=== PATIENT | female | born 1950 | race Caucasian/White ===

== ENCOUNTER 2017-05-05 16:09 | Inpatient (IN) | payer BC, OTHER ==
[~2017-05-05] VITALS: Ht 165.1 cm; Wt 85.7 kg
[2017-05-05 16:30] VITALS: BP_SYST 160
--- NOTE | 2017-05-05 19:15 | NUR ---
Patient to ER bed 2, to await MD evaluation.
--- NOTE | 2017-05-05 19:19 | NUR ---
Pt c/o fever, headache, dizziness and weakness x3 days that has progressively gotten worse today. Also c/o 10/07 pain to neck. Pt states she had the flu x1 week ago. Respirations even and unlabored. No acute distress noted at this time.
--- NOTE | 2017-05-05 19:45 | NUR ---
Dr Armstrong at bedside to evaluate patient.
[2017-05-05] MEDS ORDERED: NACL 0.9% 1,000 ML IV ONE ×2 (20:00→22:45)
[2017-05-05] MEDS ORDERED: KETOROLAC TROMETHAMINE 30 MG VIAL IVP ONE (20:00)
[2017-05-05] MEDS ORDERED: ONDANSETRON HCL 4 MG/2 ML VIAL IVP ONE (20:00)
[2017-05-05 20:13] LABS: BASOPHILS # (AUTO) 0.1 K/uL (0.0-0.2); BASOPHILS % (AUTO) 1.1 % (0.0-2.0); HEMATOCRIT 40.8 % (36-48); HEMOGLOBIN 13.7 g/dL (12.0-16.0); LYMPHOCYTES % (AUTO) 9.5 % (20.5-51.5); MEAN CORPUSCULAR HEMOGLOBIN 29 pg (27-31); MEAN CORPUSCULAR HGB CONC 34 % (32-36); MEAN CORPUSCULAR VOLUME 86 fL (79.0-98.0); MONOCYTES # (AUTO) 0.5 K/uL (0.0-1.0); MONOCYTES % (AUTO) 5.3 % (1.7-9.3); NEUTROPHILS # (AUTO) 8.4 K/uL (1.8-7.7); NEUTROPHILS % (AUTO) 84.1 % (40.0-70.0); PLATELET COUNT (AUTO) 162 K/uL (130-430); RED BLOOD CELL COUNT(AUTO) 4.72 MIL/uL (4.2-6.2); RED CELL DISTRIBUTION WIDTH 13.4 % (9.0-15.0)
[2017-05-05 20:24] LABS: CALCIUM 9.6 mg/dL (8.4-11.0); CREATININE 1.07 mg/dL (0.55-1.30); POTASSIUM 3.2 mmol/L (3.5-5.1)
[2017-05-05 20:29] LABS: ALBUMIN 3.8 g/dL (3.4-4.8); TOTAL BILIRUBIN 4.5 mg/dL (0.0-1.0)
[2017-05-05] MEDS ORDERED: ACETAMINOPHEN 500 MG TABLET PO ONE (20:30)
[2017-05-05] MEDS ORDERED: POTASSIUM CHLORIDE 20 MEQ/PKT PACKET PO ONE (20:45)
--- NOTE | 2017-05-05 20:45 | NUR ---
Patient resting quietly in no acute distress, awaiting dispo.
[2017-05-05 21:18] LABS: BILIRUBIN,URINE NEGATIVE (NEGATIVE); BLOOD, URINE 2+ (NEGATIVE); CLARITY/URINE HAZY (CLEAR); COLOR,URINE YELLOW (YELLOW); GLUCOSE,URINE 1+ (NEGATIVE); KETONES,URINE 1+ (NEGATIVE); LEUKOCYTE ESTERASE ,URINE 1+ (NEGATIVE); NITRITE, URINE POSITIVE (NEGATIVE); PROTEIN URINE TRACE (NEGATIVE); UROBILINOGEN,URINE 0.2 (0.2-1.0)
[2017-05-05 21:24] LABS: BACTERIA,URINE MANY /HPF (None Seen); MUCUS,URINE None Seen /LPF (None Seen); WBC,URINE 50-80 /HPF (0-3)
--- NOTE | 2017-05-05 21:30 | NUR ---
Dr Armstrong at bedside speaking with patient regarding results and plan of care. Patient states that she would prefer to be admitted. Call placed to admitting MD, awaiting call back. Patient resting quietly in no acute distress.
[2017-05-05] MEDS ORDERED: cefTRIAXone 1 GM in LIDOCAINE 1%, 20 ML MDV 2.1 ML IM ONE (21:45)
[2017-05-05] MEDS ORDERED: ASPI-1063 PO (21:51)
[2017-05-05] MEDS ORDERED: OMEP20CA10 PO (21:51)
[2017-05-05] MEDS ORDERED: INSU300I SQ (21:51)
[2017-05-05] MEDS ORDERED: METF1000 PO (21:51)
[2017-05-05] MEDS ORDERED: INSU10VI4 SUBCUT (21:51)
[2017-05-05] MEDS ORDERED: LIP40 PO (21:51)
[2017-05-05] MEDS ORDERED: DITXL5 PO (21:51)
[2017-05-05] MEDS ORDERED: VALS80TA2 PO (21:51)
[2017-05-05] MEDS ORDERED: cefTRIAXone 1 GM VIAL ONE (21:54)
[2017-05-05] MEDS ORDERED: cefTRIAXone 1 GM in D5W 50 ML IV ONE (22:00)
--- NOTE | 2017-05-05 22:25 | NUR ---
OPENING NOTE REPORT/POC RECEIVED FROM ER NURSE. PT RESTING WITH EYES OPEN NO S/S OF SOB/DISTRESS NOTED. CHEST RISE EVEN AND UNLABORED. NO FACIAL GRIMACING NOTED. ASSISTED PT WITH CHANGING SOILED LINENS INCLUDING GOWN. REPOSITIONED PT. SAFETY MEASURES IN PLACE, BED WHEELS LOCKED, BED IN LOWEST POSITION. BED RAILS UP X 3, CALL LIGHT WITHIN REACH, BED ALARM ON, WILL CONTINUE TO MONITOR. Addendum: 05/06/17 at 0348 by Laura Barrett RN TIME 2330
--- NOTE | 2017-05-05 22:30 | NUR ---
Patient resting quietly in no acute distress, vital signs stable, respirations even and unlabored, skin warm and dry to touch. Awaiting admit bed.
--- NOTE | 2017-05-05 23:00 | NUR ---
Patient will be admitted to care of Dr Harp. Admitted to Tele unit. Will go to room 130-A. Belongings list completed. Summary report printed. Report will be given at bedside.
--- NOTE | 2017-05-05 23:00 | NUR ---
Transfer to [facility], room 130-A via ACLS protocol. Licensed nurse present. IV present no signs or symptoms of infiltration.
--- NOTE | 2017-05-05 23:18 | NUR ---
ADMISSION NOTE Received patient from ER via gurney under the care of Dr. Harp. Patient admitted with diagnosis of UTI/HYPOKALEMIA. Patient is awake, alert, oriented X 4. Patient oriented to hospital room, call light, toileting, pain management and safety-teach back done. Patient informed that her nurse will be Erick HADLEY and that her room number is 130A. Call light within reach. Will continue to monitor patient condition.
[2017-05-05 23:39] VITALS: BP_SYST 109
[2017-05-05] MEDS ORDERED: DEXTROSE 50% JECT 50 ML DISP.SYRIN IVP PRN (23:45)
[2017-05-05] MEDS ORDERED: INSULIN REGULAR, HUMAN 100 UNITS/ML, 10 ML VIAL (novoLIN R) SUBCUT PRN (23:45)
[2017-05-06] MEDS: OSELTAMIVIR PHOSPHATE 75 MG CAPSULE PO SCH ×3 (00:03→21:00)
[2017-05-06] MEDS ORDERED: ZOLPIDEM TARTRATE 5 MG TABLET PO PRN (00:15)
[2017-05-06] MEDS ORDERED: PIPERACILLIN/TAZOBACTAM 3.375 GM/VIAL (ZOSYN) IV ONE (00:36)
--- NOTE | 2017-05-06 04:30 | NUR ---
RN ROUNDS PT RESTING WITH EYES CLOSED NO S/S OF SOB/DISTRESS NOTED. CHEST RISE EVEN AND UNLABORED. NO FACIAL GRIMACING NOTED. VITAL SIGNS WNL. PT'S MEDICATIONS GIVEN ORDERED, PT TOLERATED WELL. SAFETY MEASURES IN PLACE, BED WHEELS LOCKED, BED IN LOWEST POSITION. BED RAILS UP X 3, CALL LIGHT WITHIN REACH, BED ALARM ON, WILL CONTINUE TO MONITOR.
[2017-05-06] MEDS: ACETAMINOPHEN 325 MG TABLET PO PRN ×3 (05:36→23:30)
[2017-05-06] MEDS: PIPERACILLIN/TAZO 3.375/DEX-IS 50 ML IV SCH ×5 (05:42→23:30)
--- NOTE | 2017-05-06 05:55 | NUR ---
RN ROUNDS PT FOUND RESTING IN BED WITH EYES CLOSED, PT SHIVERING UNCONTROLLABLY. TEMPERATURE CHECKED 103.1. TYLENOL GIVEN PRN FOR FEVER. ANTIBIOTIC HUNG ORDERED. PT TOLERATED WELL. NO S/S OF SOB/DISTRESS NOTED. CHEST RISE EVEN AND UNLABORED. NO FACIAL GRIMACING NOTED. SAFETY MEASURES IN PLACE, BED WHEELS LOCKED, BED IN LOWEST POSITION. BED RAILS UP X 3, CALL LIGHT WITHIN REACH, BED ALARM ON, WILL CONTINUE TO MONITOR.
[2017-05-06] MEDS: INSULIN NPH/REGULAR 70-30, 100 UNITS/ML, 10 ML VIAL SUBCUT SCH ×3 (06:08→17:32)
--- NOTE | 2017-05-06 06:15 | NUR ---
RN ROUNDS PT FOUND RESTING COMFORTABLY WITH EYES CLOSED, NO S/S OF SOB/DISTRESS NOTED. CHEST RISE EVEN AND UNLABORED. NO FACIAL GRIMACING NOTED. ACCU CHECK DONE BS 214, INSULIN COVERAGE NEEDED. COVERAGE GIVEN, PT TOLERATED WELL. SAFETY MEASURES IN PLACE, BED WHEELS LOCKED, BED IN LOWEST POSITION. BED RAILS UP X 3, CALL LIGHT WITHIN REACH, BED ALARM ON, WILL CONTINUE TO MONITOR.
[2017-05-06 06:38] LABS: BASOPHILS % (AUTO) 0.1 % (0.0-2.0); EOSINOPHILS % (AUTO) 0.1 % (0.0-4.0); HEMATOCRIT 36.3 % (36-48); HEMOGLOBIN 12.3 g/dL (12.0-16.0); LYMPHOCYTES # (AUTO) 0.8 K/uL (1.0-5.5); LYMPHOCYTES % (AUTO) 10.8 % (20.5-51.5); MEAN CORPUSCULAR HEMOGLOBIN 30 pg (27-31); MEAN CORPUSCULAR HGB CONC 34 % (32-36); MEAN CORPUSCULAR VOLUME 89 fL (79.0-98.0); MONOCYTES # (AUTO) 0.4 K/uL (0.0-1.0); MONOCYTES % (AUTO) 5.7 % (1.7-9.3); NEUTROPHILS # (AUTO) 5.9 K/uL (1.8-7.7); NEUTROPHILS % (AUTO) 83.3 % (40.0-70.0); PLATELET COUNT (AUTO) 130 K/uL (130-430); RED BLOOD CELL COUNT(AUTO) 4.08 MIL/uL (4.2-6.2); RED CELL DISTRIBUTION WIDTH 13.8 % (9.0-15.0); WHITE BLOOD COUNT (AUTO) 7.1 K/uL (4.8-10.8)
--- NOTE | 2017-05-06 06:40 | NUR ---
CLOSING NOTE WILL ENDORSE AND GIVE REPORT TO DAY SHIFT. PT RESTING WITH EYES CLOSED NO S/S OF SOB/DISTRESS NOTED. CHEST RISE EVEN AND UNLABORED. NO FACIAL GRIMACING NOTED. TEMPERATURE RECHECKED 100.0, PT VERBALIZED FEELING BETTER, WILL CONTINUE TO MONITOR. ALL NEEDS MET DURING SHIFT. WILL INFORM DAY SHIFT OF FEVER. SAFETY MEASURES IN PLACE, BED WHEELS LOCKED, BED IN LOWEST POSITION. BED RAILS UP X 3, CALL LIGHT WITHIN REACH, BED ALARM ON, WILL CONTINUE TO MONITOR.
[2017-05-06] MEDS ORDERED: INSULIN Lispro Prot/Lispro MIX 75-25, 100 UNITS/ML, 10 ML VIAL SUBCUT SCH (07:00)
--- NOTE | 2017-05-06 07:15 | NUR ---
Opening Note Patient A/Ox3. No complaints of difficulty breathing. Rating pain 3/10, migraine-like. Noc shift administered acetaminophen for fever. Patient continues to have a fever of 99.3. Cooling measures started. Will continue to monitor temperature. Vital signs taken and patient assisted to bathroom. Extensions of RN and fisherman helper written on white board. Plan of care discussed with patient and patient verbalized understanding. Safety precautions in order and bed alarm set. Patient verbalized understanding of using call light to reach RN before attempting to evacuate bed.
[2017-05-06 07:30] LABS: ALBUMIN 3.3 g/dL (3.4-4.8); CREATININE 0.95 mg/dL (0.55-1.30); FREE T4 (FREE THYROXINE) 0.8 ng/dL (0.6-1.6); POTASSIUM 3.6 mmol/L (3.5-5.1); THYROID STIMULATING HORMONE 1.89 uIu/mL (0.34-4.82); TOTAL BILIRUBIN 4.9 mg/dL (0.0-1.0)
[2017-05-06] MEDS: ASPIRIN 81 MG TABLET(ECOTRIN) PO SCH (08:14)
[2017-05-06] MEDS: ATORVASTATIN 20 MG TABLET PO SCH (08:14)
[2017-05-06] MEDS: metFORMIN HCL 500 MG TABLET PO SCH ×2 (08:15→17:32)
[2017-05-06] MEDS: VALSARTAN 80 MG TABLET (DIOVAN) PO SCH (08:15)
[2017-05-06] MEDS: OMEPRAZOLE 20 MG CAPSULE.DR (PriLOSEC) PO SCH (08:15)
[2017-05-06] MEDS: IBUPROFEN 600 MG TABLET PO PRN ×2 (08:16→16:14)
--- NOTE | 2017-05-06 08:16 | NUR ---
Pain Patient complains of pain 06/07. Motrin 600mg PO given at this time. Will continue to monitor pain.
[2017-05-06] MEDS: LACTOBACILLUS RHAMNOSUS GG 1 CAP CAPSULE PO SCH ×2 (08:17→21:35)
[2017-05-06 08:41] VITALS: BP_SYST 115
--- NOTE | 2017-05-06 11:48 | NUR ---
Blood Glucose 198. 10 units of Novolin 70-30 given. Patient tolerated well.
[2017-05-06 12:40] VITALS: BP_SYST 135
--- NOTE | 2017-05-06 13:40 | NUR ---
Dr Harp rounds Provided patient education on plan of care. Patient and daughter verbalized understanding. One dose of Gentamicin ordered.
[2017-05-06] MEDS ORDERED: GENTAMICIN 120 mg/100 mL NS 100 ML IV ONE (14:30)
--- NOTE | 2017-05-06 15:59 | NUR ---
Blood pressure 96/49 with pulse of 68. Dr Harp notified. Ordered NS 150ml/hr.
[2017-05-06 16:11] VITALS: BP_SYST 96
--- NOTE | 2017-05-06 16:30 | NUR ---
Pain Patient complains of neck pain 06/07. Motrin administered. Will continue to monitor pain levels. Family at bedside. Both daughters asked for an update on plan of care. Discussed plan of care with patient and family members.
[2017-05-06] MEDS: NACL 0.9% 1,000 ML IV SCH ×2 (16:31→21:37)
--- NOTE | 2017-05-06 16:49 | NUR ---
CONSULT DR. VU CALLED SPOKE TO SHAWN DIALED [phone]
--- NOTE | 2017-05-06 16:50 | NUR ---
CONSULT FOR DR. RHOADES CALLED SPOKE TO FELICE DIALED [phone]
--- NOTE | 2017-05-06 18:22 | NUR ---
Closing Note Patient A/Ox3. Complains of mild neck pain. No difficulty breathing. Family at bedside. All needs met. Will endorse to noc shift patient's plan of care.
[2017-05-06 20:43] VITALS: BP_SYST 136
--- NOTE | 2017-05-06 21:15 | NUR ---
PATIENT SITTING UP IN BED asking for sleep aide , skin dry warm general weakness is noted side rails are up X 2 for safety .
--- NOTE | 2017-05-06 22:59 | NUR ---
Patient resting HOB elevated on room air 02 SAT 96 % chest movement symmetrical call posey with patient .
--- NOTE | 2017-05-07 00:19 | NUR ---
OPENING NOTE RECEIVED REPORT FROM KEISHA. PT RESTING WITH EYES OPEN NO S/S OF SOB/DISTRESS NOTED. CHEST RISE EVEN AND UNLABORED. NO FACIAL GRIMACING NOTED. SAFETY MEASURES IN PLACE, BED WHEELS LOCKED, BED IN LOWEST POSITION. BED RAILS UP X 3, CALL LIGHT WITHIN REACH, BED ALARM ON, WILL CONTINUE TO MONITOR
[2017-05-07 00:27] VITALS: BP_SYST 115
--- NOTE | 2017-05-07 00:27 | NUR ---
PAGED DOCTOR PAGED DOCTOR EILEEN
--- NOTE | 2017-05-07 00:35 | NUR ---
SBAR REPORT GIVEN TO LEONIE CASTRO .
--- NOTE | 2017-05-07 00:38 | NUR ---
RN ROUNDS/MD PATIENT AWAKE, VITAL SIGNS STABLE. AMBULATED TO BATHROOM WITH NURSE ASSIST. PLACED BACK IN BED, PATIENT STATES SHE HAS NAUSEA, NO VOMITING. PAGED DR. ARELLANO, NEW MEDICATION ORDER FOR ZOFRAN ORDERED. WILL CARRY OUT.
[2017-05-07] MEDS ORDERED: ONDANSETRON HCL 4 MG/2 ML VIAL IVP PRN (00:45)
--- NOTE | 2017-05-07 02:13 | NUR ---
RN ROUNDS PATIENT ASLEEP, RESPIRATIONS EVEN AND UNLABORED, ON ROOM AIR, IVF INFUSING, SAFETY MEASURES IN PLACE, CALL LIGHT WITHIN REACH, WILL MONITOR.
--- NOTE | 2017-05-07 02:43 | NUR ---
RN ROUNDS PATIENT ASLEEP, RESPIRATIONS EVEN AND UNLABORED, ON ROOM AIR, SAFETY MEASURES IN PLACE, BED ALARM ON, CALL LIGHT IN REACH, WILL CONTINUE TO MONITOR.
--- NOTE | 2017-05-07 04:07 | NUR ---
RN ROUNDS PATIENT CONTINUES TO SLEEP, RESPIRATIONS EVEN AND UNLABORED, VITALS STABLE. BED ALARM ON, CALL LIGHT WITHIN REACH, WILL CONTINUE TO MONITOR.
[2017-05-07] MEDS: NACL 0.9% 1,000 ML IV SCH ×3 (05:25→20:44)
[2017-05-07] MEDS: PIPERACILLIN/TAZO 3.375/DEX-IS 50 ML IV SCH (05:25)
[2017-05-07] MEDS: INSULIN NPH/REGULAR 70-30, 100 UNITS/ML, 10 ML VIAL SUBCUT SCH ×3 (06:05→17:29)
--- NOTE | 2017-05-07 06:30 | NUR ---
RN ROUNDS PT ASSISTED TO THE RESTROOM AND BACK INTO BED. SAFETY MEASURES IN PLACE CALL LIGHT WITHIN REACH, BED WHEEELS LOCKED AND IN LOWEST POSITION, BED ALARM ON, BED RAILS UP X3. WILL CONTINUE TO MONITOR.
[2017-05-07 06:50] LABS: BASOPHILS % (AUTO) 0.4 % (0.0-2.0); EOSINOPHILS % (AUTO) 0.1 % (0.0-4.0); HEMATOCRIT 30.5 % (36-48); HEMOGLOBIN 10.1 g/dL (12.0-16.0); LYMPHOCYTES # (AUTO) 0.5 K/uL (1.0-5.5); LYMPHOCYTES % (AUTO) 10.3 % (20.5-51.5); MEAN CORPUSCULAR HEMOGLOBIN 29 pg (27-31); MEAN CORPUSCULAR HGB CONC 33 % (32-36); MEAN CORPUSCULAR VOLUME 88 fL (79.0-98.0); MONOCYTES # (AUTO) 0.3 K/uL (0.0-1.0); MONOCYTES % (AUTO) 7.1 % (1.7-9.3); NEUTROPHILS # (AUTO) 3.6 K/uL (1.8-7.7); NEUTROPHILS % (AUTO) 82.1 % (40.0-70.0); PLATELET COUNT (AUTO) 100 K/uL (130-430); RED BLOOD CELL COUNT(AUTO) 3.46 MIL/uL (4.2-6.2); RED CELL DISTRIBUTION WIDTH 13.9 % (9.0-15.0); WHITE BLOOD COUNT (AUTO) 4.4 K/uL (4.8-10.8)
--- NOTE | 2017-05-07 07:01 | NUR ---
CLOSING NOTE FOUND PT RESTING WITH EYES CLOSED NO S/S OF SOB/DISTRESS NOTED. CHEST RISE EVEN AND UNLABORED. ALL NEEDS MET DURING SHIFT. SAFETY MEASURES IN PLACE, BED WHEELS LOCKED, BED IN LOWEST POSITION. BED RAILS UP X 3, CALL LIGHT WITHIN REACH, BED ALARM ON, WILL CONTINUE TO MONITOR. WILL ENDORSE POC TO DAY SHIFT NURSE.
[2017-05-07 07:07] LABS: CALCIUM 7.8 mg/dL (8.4-11.0); CREATININE 0.91 mg/dL (0.55-1.30); POTASSIUM 3.3 mmol/L (3.5-5.1)
--- NOTE | 2017-05-07 07:20 | NUR ---
Opening Note Patient A/Ox3, no complaints of pain or difficulty breathing at this time. States she feels extremely "Groggy" from taking Ambien last night. Extensions director of purchasing, MOBILE THERAPIST and dry pan charger written on white board. Plan of care discussed with patient. Patient verbalized understanding. Call light in reach and safety precautions in order
--- NOTE | 2017-05-07 07:45 | NUR ---
Patient left floor for CT of abdomen and pelvis with and without contrast via wheelchair.
[2017-05-07] MEDS ORDERED: IOHEXOL 100 ML IV ONE ×2 (07:59→08:03)
[2017-05-07] MEDS: metFORMIN HCL 500 MG TABLET PO SCH ×2 (08:00→17:29)
[2017-05-07 08:15] VITALS: BP_SYST 119
--- NOTE | 2017-05-07 08:20 | NUR ---
Patient returned back to floor via wheelchair. IV infusion continued. Patient notified she is not able to take her metformin for 48hrs.
[2017-05-07] MEDS: ASPIRIN 81 MG TABLET(ECOTRIN) PO SCH (09:23)
[2017-05-07] MEDS: OSELTAMIVIR PHOSPHATE 75 MG CAPSULE PO SCH ×2 (09:24→20:39)
[2017-05-07] MEDS: ATORVASTATIN 20 MG TABLET PO SCH (09:24)
[2017-05-07] MEDS: LACTOBACILLUS RHAMNOSUS GG 1 CAP CAPSULE PO SCH ×2 (09:24→20:38)
[2017-05-07] MEDS: VALSARTAN 80 MG TABLET (DIOVAN) PO SCH (09:24)
[2017-05-07] MEDS: OMEPRAZOLE 20 MG CAPSULE.DR (PriLOSEC) PO SCH (09:24)
--- NOTE | 2017-05-07 09:33 | NUR ---
Nausea Patient states she is feel nauseous. Zofran IVP administered. Will continue to monitor nausea.
[2017-05-07 11:56] VITALS: BP_SYST 126
--- NOTE | 2017-05-07 12:10 | NUR ---
Rounds Patient sleeping in bed. Daughter at bedside. Asked for an update on plan of care. Patient and family member given an update on plan of care. All questions and concerns addressed.
[2017-05-07] MEDS ORDERED: POTASSIUM CHLORIDE 20 MEQ TAB.PRT.SR PO ONE (13:30)
--- NOTE | 2017-05-07 13:50 | NUR ---
Dr Loyd diaz Gives patient a print out of result from CT of abdomen and pelvis. Results reviewed with patient and daughter.
--- NOTE | 2017-05-07 14:22 | NUR ---
CONSULTATION WAS CALLED RE: PANCYTOPENIA SPOKE WITH JOSE ALBERTO FROM DR. HICKS OFFICE .
--- NOTE | 2017-05-07 15:50 | NUR ---
Rounds Patient assisted to bathroom and back to bed. Patient states "I feel like I've been hit by a bus and all I want to do is sleep."
[2017-05-07 16:35] VITALS: BP_SYST 129
--- NOTE | 2017-05-07 18:31 | NUR ---
Closing Note Patient A/Ox4, ambulatory with steady gait. No complaints of pain or difficulty breathing on room air. Currently laying in bed with family at bedside. IV fluids running to left AC. All needs met during shift. Call light in reach, safety precautions in order. Will endorse to noc shift patient's plan of care.
[2017-05-07 20:00] VITALS: BP_SYST 127
--- NOTE | 2017-05-07 20:00 | NUR ---
Opening Note Pt is a/o x 4, resting in bed, w/ no signs of distress noted at this time. Breathing is even and unlabored on room air. IV site is clean, dry and intact, IVF infusing well. Bed is locked in lowest position w/ 2 side rails up, bed alarm on and call light w/ pt. Pt instructed to call if assistance needed and verbalized understanding. No concerns noted, will continue to monitor pt.
--- NOTE | 2017-05-07 20:15 | NUR ---
Headache Pt c/o headache 06/07. Will administer prn Ibuprofen, per pt's preference/request. Will reassess pt and continue to monitor.
[2017-05-07] MEDS: POTASSIUM CHLORIDE 20 MEQ TAB.PRT.SR PO SCH (20:38)
[2017-05-07] MEDS: IBUPROFEN 600 MG TABLET PO PRN (20:39)
--- NOTE | 2017-05-07 22:05 | NUR ---
Rounds Pt sleeping in bed w/ no signs of distress noted at this time. Safety measures in place, call light w/ pt and will continue to monitor pt.
[2017-05-08 00:25] VITALS: BP_SYST 97
--- NOTE | 2017-05-08 02:10 | NUR ---
ROUNDS Pt sleeping w/ no signs of distress noted, safety measures in place and will continue to monitor pt.
--- NOTE | 2017-05-08 04:20 | NUR ---
Rounds Pt sleeping in bed, no signs of distress noted.
--- NOTE | 2017-05-08 06:37 | NUR ---
Closing Note Pt sleeping in bed, breathing is even and unlabored on room air. Accucheck completed w/ BG result of 133, will administer scheduled 12 units Insulin closer to breakfast, as pt has not been eating well d/t decreased appetite. Pt states that she feels her appetite has improved this morning and she is looking forward to breakfast Pt's needs met throughout shift, safety measures in place and call light w/ pt. No concerns, will continue to monitor and endorse to day shift RN.
[2017-05-08 06:52] LABS: BASOPHILS % (AUTO) 0.4 % (0.0-2.0); EOSINOPHILS % (AUTO) 0.8 % (0.0-4.0); HEMATOCRIT 28.8 % (36-48); HEMOGLOBIN 9.6 g/dL (12.0-16.0); LYMPHOCYTES % (AUTO) 26.7 % (20.5-51.5); MEAN CORPUSCULAR HEMOGLOBIN 30 pg (27-31); MEAN CORPUSCULAR HGB CONC 33 % (32-36); MEAN CORPUSCULAR VOLUME 89 fL (79.0-98.0); MONOCYTES # (AUTO) 0.4 K/uL (0.0-1.0); MONOCYTES % (AUTO) 11.4 % (1.7-9.3); NEUTROPHILS # (AUTO) 2.4 K/uL (1.8-7.7); PLATELET COUNT (AUTO) 100 K/uL (130-430); RED BLOOD CELL COUNT(AUTO) 3.25 MIL/uL (4.2-6.2); RED CELL DISTRIBUTION WIDTH 13.6 % (9.0-15.0); WHITE BLOOD COUNT (AUTO) 3.8 K/uL (4.8-10.8)
[2017-05-08 07:21] LABS: CALCIUM 8.6 mg/dL (8.4-11.0); CREATININE 0.7 mg/dL (0.55-1.30); POTASSIUM 3.8 mmol/L (3.5-5.1)
[2017-05-08] MEDS: INSULIN NPH/REGULAR 70-30, 100 UNITS/ML, 10 ML VIAL SUBCUT SCH ×3 (07:46→17:04)
[2017-05-08] MEDS: metFORMIN HCL 500 MG TABLET PO SCH ×2 (07:47→18:00)
[2017-05-08 08:00] VITALS: BP_SYST 114
--- NOTE | 2017-05-08 08:00 | NUR ---
RN OPENING NOTE patient resting in bed, alert oriented x 4 , denies pain or discomfort, patient vital signs are stable. patient was assessed, will pass her med as prescribed. bed at low position. we need to start a new saline lock for the patient will call Ai the Resource nurse to help while I'm assessing other patient.bed alarm are on. walker by the bed side, will continue to monitor.
[2017-05-08 08:48] LABS: NEUTROPHILS % (AUTO) 60.7 % (40.0-70.0)
[2017-05-08] MEDS: OSELTAMIVIR PHOSPHATE 75 MG CAPSULE PO SCH ×2 (09:32→21:00)
[2017-05-08] MEDS: OMEPRAZOLE 20 MG CAPSULE.DR (PriLOSEC) PO SCH (09:32)
[2017-05-08] MEDS: VALSARTAN 80 MG TABLET (DIOVAN) PO SCH (09:32)
[2017-05-08] MEDS: ATORVASTATIN 20 MG TABLET PO SCH (09:33)
[2017-05-08] MEDS: ASPIRIN 81 MG TABLET(ECOTRIN) PO SCH (09:33)
[2017-05-08] MEDS: POTASSIUM CHLORIDE 20 MEQ TAB.PRT.SR PO SCH ×2 (09:33→21:00)
[2017-05-08] MEDS: LACTOBACILLUS RHAMNOSUS GG 1 CAP CAPSULE PO SCH ×2 (09:33→21:01)
--- NOTE | 2017-05-08 09:50 | NUR ---
patient was helped to the bath room, patient denies pain or discomfort. will follow up
--- NOTE | 2017-05-08 11:30 | NUR ---
patient resting in bed, Daughter by the bedside, patient denies pain or discomfort. patient blood sugar was measured to be 179 mg/dl patient, patient will be getting his scheduled 12 units of 70/30 insulin. patient was assisted to the bathroom for voiding. and returned back to bed. still running her IVF. will continue to monitor.
[2017-05-08 12:00] VITALS: BP_SYST 116
--- NOTE | 2017-05-08 12:53 | NUR ---
ONCO/JUVENILE CORRECTIONS OFFICER CONSULT WAS CALLED TO DR HICKS, RE: PANCYTOPENIA. SPOKE TO POL[place]
[2017-05-08] MEDS: IBUPROFEN 600 MG TABLET PO PRN (13:08)
--- NOTE | 2017-05-08 13:20 | NUR ---
spoke with Dr. Warren the Follow Up Rep. as Dr. العراقي (the I.D )suggested patient can be discharged home today and get the IV antibiotics in an infusion center. Dr. Warren ordered labs for tomorrow, that would find out the reason of the patient sudden drop in Hemoglobin as will as explain the hematologic picture of the patient's CBC. when I told him the patient may leave today, He said the patient better stay till we get the labs done as well as the stool for the occult blood sample sent . this talks were endorsed to the director of casework and the patient, so awaiting for a stool sample from the patient. director of casework was told of the situation. so mostly patient will be D/C tomorrow. director of casework to follow up with the case.
--- NOTE | 2017-05-08 13:36 | NUR ---
DC PLANNING Spoke w Dr Wood in [facility], recommends IV abx x7days, per ID ok to dc today. States pt can go to Infusion center in [place] for IV abx, no PICC needed. Per pt's nurse Dr Warren ordered new w/u today & recommends pt stay 1 more night for w/u to be completed. Spoke w pt & dtr Elissa @ bedside, discussed options for IV abx SNF vs Infusion Center in [place] vs Home Health. Per pt prefers to dc home & f/u @ Infusion center for IV abx. States dtr's/dtr will be able to assist her @ home & they will also be able to take her to Infusion center daily. Updated rigo Brian merchandise planner. Addendum: 05/08/17 at 1447 by Snehal Lazar DP Faxed [facility] to [facility] [phone] located [address] [facility] [address]. Will follow up with scheduling confirmation.
--- NOTE | 2017-05-08 15:00 | NUR ---
DR. ARELLANO THE PRIMARY, ARE NOT AGREEING WITH D/C PATIENT TODAY, PATIENT WAS INFORMED, THAT SHE WILL STAY OVER NIGHT PENDING HER DISCHARGE ORDERS. PATIENT DENIES PAIN OR DISCOMFORT WILL CONTINUE TO FOLLOW UP.
--- NOTE | 2017-05-08 15:20 | NUR ---
Dietitian Recommendations 1. Continue CCHO diet, as tolerated. 2. Consume >75% of meals, as tolerated. 3. If appetite/po intake declines, recommend Boost Glucose Control BID (provides 250kacl, 14g pro per serving). 4. Monitor appetite/po intake, weight, labs, GI status, skin integrity. Please see nutrition assessment for further information. ANURAG MICHELLE
[2017-05-08 15:35] LABS: ALBUMIN 2.7 g/dL (3.4-4.8); BILIRUBIN,DIRECT 0.6 mg/dL (0.0-0.3); TOTAL BILIRUBIN 1.8 mg/dL (0.0-1.0)
[2017-05-08 16:00] VITALS: BP_SYST 112
--- NOTE | 2017-05-08 17:00 | NUR ---
PATIENT BLOOD SUGAR WAS MEASURED TO BE 159MG/DL. PATIENT GOT HER 70/30 INSULIN 12 UNITS SQ. PATIENT DENIES PAIN OR DISCOMFORT. PATIENT WAS TOLD THAT SHE CAN SHOWER PER DR. ARELLANO'S ORDER. PATIENT TELE WAS DISCONTINUED AND PATIENT IS MED SURG NOW. WILL CONTINUE TO MONITOR.
--- NOTE | 2017-05-08 18:00 | NUR ---
RN CLOSING NOTE PATIENT WAS TOLD ABOUT THE DECISION TO KEEP HER OVER NIGHT, DAUGHTER ALREADY LEFT HOME. THE PATIENT DENIES PAIN OR DISCOMFORT. WANTS TO TAKE A SHOWER, WE ARE LOOKING FOR A FEMALE NURSE TO ACCOMPANY HER AND ASSIST HER IN THE SHOWER. WILL ENDORSE TO NEXT SHIFT,
--- NOTE | 2017-05-08 19:00 | NUR ---
RN opening note: Report received from dayshift RN. Pt awake, alert and pleasant. Denies pain/discomfort. SL in Right hand. Drsg clean, dry and intact. Flushed with 10 ml NS as per protocol without resistance. Will continue to monitor.
[2017-05-08 20:57] VITALS: BP_SYST 128
--- NOTE | 2017-05-08 21:00 | NUR ---
RN rounds/med administration: Pt medicated with PM meds. VSS. Assessed. Pt requesting to shower, however, shower is currently being used by another pt. Fingerstick done. Results 153. No coverage needed at this time.
--- NOTE | 2017-05-08 23:00 | NUR ---
Pt rounds: Pt ambulated to shower and washed independently. SL covered with plastic glove to protect it from getting wet. Pt assisted back to bed. Pt states she feels much better
[2017-05-09] VITALS: BP_SYST 109
--- NOTE | 2017-05-09 01:00 | NUR ---
RN rounds: Pt appears free of pain/discomfort. Sleeping soundly. Will continue to assess/assist as needed.
--- NOTE | 2017-05-09 03:00 | NUR ---
RN rounds: Pt sound asleep without distress. Resp unlabored. Skin Warm and dry. Will continue to monitor.
--- NOTE | 2017-05-09 04:00 | NUR ---
RN Notes: Pt up to the bathroom. c/o abd pain and bloaing. ,States her stomach is still bloated, but she's not able to pass gas. BS positive in all 4 quads. Will continue to assess.
--- NOTE | 2017-05-09 05:14 | NUR ---
RN rounds; Pt awake. States she is still urinating a lot. Amb with steady gait. Walker at bedside. Pt states, " I've been going to the restroom without even using my walker. I only need it when I'm going on longer walks." Advised pt to keep walker close by just in case.
--- NOTE | 2017-05-09 06:00 | NUR ---
RN Closing note: Lab here to draw pt's blood. Pt without complaints although she did not sleep very well. Constantly up and down to the restroom to void and c/o abd discomfort d/t eating ice cream. Pt thinks she "may be lactose intolerant but it was good". Will endorse pt to oncoming RN for continuity of care.
[2017-05-09] MEDS: INSULIN NPH/REGULAR 70-30, 100 UNITS/ML, 10 ML VIAL SUBCUT SCH ×3 (07:18→17:29)
[2017-05-09 07:32] LABS: BASOPHILS % (AUTO) 0.5 % (0.0-2.0); EOSINOPHILS # (AUTO) 0.1 K/uL (0.0-0.4); EOSINOPHILS % (AUTO) 1.7 % (0.0-4.0); HEMATOCRIT 28.3 % (36-48); HEMOGLOBIN 9.4 g/dL (12.0-16.0); LYMPHOCYTES % (AUTO) 23.3 % (20.5-51.5); MEAN CORPUSCULAR HEMOGLOBIN 29 pg (27-31); MEAN CORPUSCULAR HGB CONC 33 % (32-36); MEAN CORPUSCULAR VOLUME 88 fL (79.0-98.0); MONOCYTES # (AUTO) 0.3 K/uL (0.0-1.0); MONOCYTES % (AUTO) 6.4 % (1.7-9.3); NEUTROPHILS # (AUTO) 2.9 K/uL (1.8-7.7); NEUTROPHILS % (AUTO) 68.1 % (40.0-70.0); PLATELET COUNT (AUTO) 117 K/uL (130-430); RED BLOOD CELL COUNT(AUTO) 3.21 MIL/uL (4.2-6.2); RED CELL DISTRIBUTION WIDTH 13.8 % (9.0-15.0); WHITE BLOOD COUNT (AUTO) 4.3 K/uL (4.8-10.8)
[2017-05-09 07:50] LABS: ALBUMIN 2.7 g/dL (3.4-4.8); CALCIUM 9.1 mg/dL (8.4-11.0); CREATININE 0.74 mg/dL (0.55-1.30); POTASSIUM 4.1 mmol/L (3.5-5.1); TOTAL BILIRUBIN 1.5 mg/dL (0.0-1.0)
[2017-05-09 08:00] VITALS: BP_SYST 130
[2017-05-09] MEDS: metFORMIN HCL 500 MG TABLET PO SCH ×2 (08:00→17:26)
--- NOTE | 2017-05-09 08:00 | NUR ---
initial notes rec patient awake alert with ivl on the r hand intact. no infiltration noted. resp easy and unlabored. no acute distress noted. call light within reached and knows when to call for assists. bed in low position and side rails up and locked. will continue to monitor patient.
[2017-05-09 08:43] LABS: RETICULOCYTE COUNT 3.5 % (0.5-1.5)
[2017-05-09] MEDS: ATORVASTATIN 20 MG TABLET PO SCH (09:00)
[2017-05-09] MEDS: OMEPRAZOLE 20 MG CAPSULE.DR (PriLOSEC) PO SCH (09:06)
[2017-05-09] MEDS: POTASSIUM CHLORIDE 20 MEQ TAB.PRT.SR PO SCH ×2 (09:07→21:37)
[2017-05-09] MEDS: LACTOBACILLUS RHAMNOSUS GG 1 CAP CAPSULE PO SCH ×2 (09:07→21:37)
[2017-05-09] MEDS: ASPIRIN 81 MG TABLET(ECOTRIN) PO SCH (09:07)
[2017-05-09] MEDS: VALSARTAN 80 MG TABLET (DIOVAN) PO SCH (09:08)
[2017-05-09] MEDS: OSELTAMIVIR PHOSPHATE 75 MG CAPSULE PO SCH ×2 (09:08→21:36)
[2017-05-09 09:13] LABS: TOTAL IRON BIND. CAPACITY 193 ug/dL (250-450)
--- NOTE | 2017-05-09 10:00 | NUR ---
rounds ambulates to the br with min assists and and notd with blood streaked in her stool. dr urban was made aware and with orders.
--- NOTE | 2017-05-09 10:20 | NUR ---
CONSULTATION CALLED REASON FOR CONSULTATION:GI BLEEDING WAS CONSULT CALLED?Y PERSON WHO WAS NOTIFIED:[place] CONSULTING PHYSICIAN:NADIR RMAON AUTO MACHINIST SPECIALTY:GI AUTO MACHINIST PHONE NUMBER:[phone] ORDERING PHYSICIAN:SAÚL MUNSON
[2017-05-09] MEDS ORDERED: LOPERAMIDE HCL 2 MG CAPSULE PO ONE (10:45)
[2017-05-09] MEDS ORDERED: LOPERAMIDE HCL 2 MG CAPSULE PO PRN (10:45)
--- NOTE | 2017-05-09 11:19 | NUR ---
DISCHARGE PLANNING Called [facility] [phone] left voice message for Annette in intake dept requesting return call back. Addendum: 05/09/17 at 1132 by Snehal Lazar DP Confirmed with Annette at [facility] patient scheduled tomorrow for IV medication, Annette informed patient.
[2017-05-09] MEDS ORDERED: metroNIDAZOLE 500 MG TABLET PO ONE (11:30)
--- NOTE | 2017-05-09 12:00 | NUR ---
rounds no hypo hyperglycemic reaction noted. due meds given as ordered.
[2017-05-09 13:07] VITALS: BP_SYST 132
--- NOTE | 2017-05-09 14:00 | NUR ---
rounds pt sleeps at intervals and side rails up and locked. call light within reached.
[2017-05-09] MEDS: IBUPROFEN 600 MG TABLET PO PRN (15:11)
[2017-05-09 15:23] VITALS: BP_SYST 131
--- NOTE | 2017-05-09 16:00 | NUR ---
rounds ambulates to the br with min assists and stated that her diarrhea stops but the immodium. explained to patient that at 1700 will start the gi prep meds and understood. also explained re npo after midnight.
[2017-05-09] MEDS ORDERED: BISACODYL 5 MG TABLET.DR (DULCOLAX) PO ONE (17:00)
[2017-05-09] MEDS ORDERED: COMMUNICATION ORDER XX ONE (17:45)
[2017-05-09] MEDS ORDERED: GOLYTELY / COLYTE SOLUTION 4 LITERS PO ONE (18:00)
--- NOTE | 2017-05-09 18:30 | NUR ---
closing notes pt started the golytely prep and stated had been to the br once and with small amount of blood streak stool. no hypo hyperglycemic reaction noted. bed in low position and side rails up and locked. call light within reached and bedside commode provided at bedside.
--- NOTE | 2017-05-09 19:50 | NUR ---
ROUNDS PATIENT IN BED, WATCHING TV, VITALS STABLE, DENIES ANY PAIN AND DISCOMFORT AT THIS TIME. ASSESSMENT DONE AND DOCUMENTED. SEE FLOWSHEET. PATIENT TOLERATING GOLYTELY AT THIS TIME ORDERED. NEEDS ATTENDED TO. SAFETY AND FALL PRECAUTION MEASURES IN PLACED. BEDSIDE COMMODE PROVIDED. CALL LIGHT PLACED WITHIN REACH. WILL CONTINUE TO MONITOR.
[2017-05-09 20:00] VITALS: BP_SYST 129
--- NOTE | 2017-05-09 21:15 | NUR ---
ACCU CHECK ACCU CHECK DONE , BLOOD SUGAR 115 WITH NO INSULIN COVERAGE. DUE MEDICATIONS ALSO GIVEN ORDERED, TOLERATED WELL. WILL CONTINUE TO MONITOR.
[2017-05-09] MEDS: metroNIDAZOLE 500 mg/NS 100 ML IV SCH (21:37)
[2017-05-09] MEDS ORDERED: metroNIDAZOLE 500 MG TABLET PO SCH (22:00)
--- NOTE | 2017-05-10 00:10 | NUR ---
PATIENT RESTING: Patient resting quietly. No acute distress noted. Vital signs within normal range.
[2017-05-10 00:18] VITALS: BP_SYST 104
--- NOTE | 2017-05-10 02:15 | NUR ---
ROUNDS PATIENT ASLEEP, VITALS STABLE, WILL CONTINUE TO MONITOR.
--- NOTE | 2017-05-10 04:10 | NUR ---
PATIENT RESTING: Patient resting quietly. No acute distress noted. Vital signs within normal range.
[2017-05-10] MEDS: metroNIDAZOLE 500 mg/NS 100 ML IV SCH ×3 (05:10→22:43)
[2017-05-10] MEDS: INSULIN NPH/REGULAR 70-30, 100 UNITS/ML, 10 ML VIAL SUBCUT SCH ×3 (06:34→17:08)
[2017-05-10 06:43] LABS: BASOPHILS % (AUTO) 0.3 % (0.0-2.0); EOSINOPHILS # (AUTO) 0.1 K/uL (0.0-0.4); HEMATOCRIT 27.5 % (36-48); HEMOGLOBIN 9.1 g/dL (12.0-16.0); LYMPHOCYTES # (AUTO) 1.2 K/uL (1.0-5.5); LYMPHOCYTES % (AUTO) 28.7 % (20.5-51.5); MEAN CORPUSCULAR HEMOGLOBIN 29 pg (27-31); MEAN CORPUSCULAR HGB CONC 33 % (32-36); MEAN CORPUSCULAR VOLUME 88 fL (79.0-98.0); MONOCYTES # (AUTO) 0.2 K/uL (0.0-1.0); MONOCYTES % (AUTO) 5.9 % (1.7-9.3); NEUTROPHILS # (AUTO) 2.5 K/uL (1.8-7.7); NEUTROPHILS % (AUTO) 63.1 % (40.0-70.0); PLATELET COUNT (AUTO) 128 K/uL (130-430); RED BLOOD CELL COUNT(AUTO) 3.12 MIL/uL (4.2-6.2); RED CELL DISTRIBUTION WIDTH 14.1 % (9.0-15.0)
[2017-05-10 06:47] LABS: CALCIUM 8.9 mg/dL (8.4-11.0); CREATININE 0.73 mg/dL (0.55-1.30); POTASSIUM 3.6 mmol/L (3.5-5.1)
--- NOTE | 2017-05-10 06:47 | NUR ---
CLOSING NOTES PATIENT REMAINED STABLE, DENIES ANY PAIN AND DISCOMFORT AT THIS TIME. TAP WATER ENEMA DONE ORDERED WITH CLEAR RETURN FLOW, TOLERATING PROCEDURE WELL FOR HER SCHEDULED EGD AND COLONOSCOPY TODAY. ALL NEEDS ATTENDED TO. CALL LIGHT PLACED WITHIN REACH.
--- NOTE | 2017-05-10 07:35 | NUR ---
AM ROUNDS: PATIENT AWAKE LYING ON THE BED. NPO [place] AT THE TABLE AND VERBALIZED UNDERSTANDING,FOR EGD/COLONOSCOPY TODAY BY DR VOSS .CONSENT SIGNED BY THE PATIENT AND ATTACHED TO THE CHART. CALL LIGHT WITH IN REACH. BED LOCKED AT LOWEST POSITION.
[2017-05-10 07:45] VITALS: BP_SYST 111
[2017-05-10] MEDS: metFORMIN HCL 500 MG TABLET PO SCH ×2 (08:00→17:09)
--- NOTE | 2017-05-10 09:17 | NUR ---
ROCEPHIN: DUE IV ANTIBIOTICS GIVEN ORDERED.
[2017-05-10] MEDS ORDERED: SIMETHICONE 40 MG/0.6 ML ML ONE (09:21)
--- NOTE | 2017-05-10 09:45 | NUR ---
IV NOTES: PT C/O PAIN AT THE IV SITE.IV RE SITED AT LEFT HAND USING G#22,IV ANTIBIOTICS GIVEN.
--- NOTE | 2017-05-10 11:27 | NUR ---
BLOOD SUGAR: BLOOD [id number]=585LX/DL,NO COVERAGE GIVEN, PATIENT NOTHING BY MOUTH FOR EGD/COLONOSCOPY TODAY. NOTIFIED.
[2017-05-10 11:52] VITALS: BP_SYST 129
--- NOTE | 2017-05-10 11:54 | NUR ---
GI LAB: [facility] GI NURSE TOOK PATIENT VIA WHEELCHAIR TO GI LAB FOR EGD/COLONOSCOPY.
[2017-05-10] MEDS: MIDAZOLAM HCL 5 MG/5 ML VIAL ONE ×2 (12:13→12:15)
[2017-05-10] MEDS: MEPERIDINE HCL/PF 100 MG/ML AMP ONE ×2 (12:13→12:15)
--- NOTE | 2017-05-10 13:37 | NUR ---
RN ROUNDING: BACK FROM GI LAB ,STABLE. PATIENT HUNGRY,REQUESTED FOR FOOD.CALL [facility] AND [facility]EGD RESULT=GASTRITIS,COLONOSCOPY RESULTS=DIVERTICULOSIS,HEMORRHOIDS PER JOSE ALBERTO RN FROM GI LAB.
[2017-05-10] MEDS: OMEPRAZOLE 20 MG CAPSULE.DR (PriLOSEC) PO SCH (15:01)
[2017-05-10] MEDS: ASPIRIN 81 MG TABLET(ECOTRIN) PO SCH (15:02)
[2017-05-10] MEDS: OSELTAMIVIR PHOSPHATE 75 MG CAPSULE PO SCH (15:02)
[2017-05-10] MEDS: LACTOBACILLUS RHAMNOSUS GG 1 CAP CAPSULE PO SCH ×2 (15:02→20:45)
[2017-05-10] MEDS: POTASSIUM CHLORIDE 20 MEQ TAB.PRT.SR PO SCH ×2 (15:02→20:45)
[2017-05-10] MEDS: VALSARTAN 80 MG TABLET (DIOVAN) PO SCH (15:07)
[2017-05-10 15:10] LABS: FOLATE (FOLIC ACID) 16.9 ng/mL (>3.0)
--- NOTE | 2017-05-10 15:10 | NUR ---
RN ROUNDS: WITH VISITOR'S AT BEDSIDE. NO NEEDS THIS TIME.
[2017-05-10 16:48] VITALS: BP_SYST 123
--- NOTE | 2017-05-10 17:15 | NUR ---
BLOOD SUGAR: BLOOD PTEQY=349HQ/DL,NOVALIN 70/30 12 UNITS SUBQ GIVEN ORDERED. NO INSULIN GIVEN PER SLIDING SCALE.
--- NOTE | 2017-05-10 18:43 | NUR ---
CLOSING NOTES: JUST FINISHED EATING HER DINNER. STABLE. CALL LIGHT WITH IN REACH. BED LOCKED AT LOWEST POSITION.
--- NOTE | 2017-05-10 19:40 | NUR ---
ROUNDS PATIENT RESTING COMFORTABLY IN BED, VITALS STABLE, DENIES ANY PAIN AND DISCOMFORT AT THIS TIME. ASSESSMENT DONE AND DOCUMENTED. SEE FLOWSHEET. NEEDS ATTENDED TO. SAFETY AND FALL PRECAUTION MEASURES IN PLACED. BED IN LOW AND LOCKED POSITION. CALL LIGHT PLACED WITHIN REACH.
[2017-05-10 20:00] VITALS: BP_SYST 118
[2017-05-10] MEDS: ACETAMINOPHEN 325 MG TABLET PO PRN (20:45)
[2017-05-10] MEDS ORDERED: ATORVASTATIN 20 MG TABLET PO SCH (21:00)
--- NOTE | 2017-05-10 21:15 | NUR ---
ACCU CHECK ACCU CHECK DONE, BLOOD SUGAR 163 WITH NO INSULIN COVERAGE PER SLIDING SCALE. WILL CONTINUE TO MONITOR.
[2017-05-10 23:50] VITALS: BP_SYST 107
--- NOTE | 2017-05-11 00:15 | NUR ---
PATIENT RESTING: Patient resting quietly. No acute distress noted. Vital signs within normal range.
--- NOTE | 2017-05-11 02:05 | NUR ---
ROUNDS PATIENT ASLEEP, NO SOB NOTED, VITALS STABLE. WILL CONTINUE TO MONITOR.
--- NOTE | 2017-05-11 04:10 | NUR ---
PATIENT RESTING: Patient resting quietly. No acute distress noted. Vital signs within normal range.
[2017-05-11] MEDS: metroNIDAZOLE 500 mg/NS 100 ML IV SCH (05:49)
--- NOTE | 2017-05-11 06:19 | NUR ---
CLOSING NOTES PATIENT AWAKE, WATCHING TV, DENIES ANY PAIN AND DISCOMFORT AT THIS TIME. ACCU CHECK DONE WITH BLOOD SUGAR OF 127, NO INSULIN COVERAGE PER SLIDING SCALE. ALL NEEDS ATTENDED TO. CALL LIGHT PLACED WITHIN REACH.
[2017-05-11 06:25] LABS: BASOPHILS % (AUTO) 0.5 % (0.0-2.0); EOSINOPHILS # (AUTO) 0.1 K/uL (0.0-0.4); HEMATOCRIT 29.3 % (36-48); HEMOGLOBIN 9.7 g/dL (12.0-16.0); LYMPHOCYTES # (AUTO) 1.2 K/uL (1.0-5.5); LYMPHOCYTES % (AUTO) 24.5 % (20.5-51.5); MEAN CORPUSCULAR HEMOGLOBIN 30 pg (27-31); MEAN CORPUSCULAR HGB CONC 33 % (32-36); MEAN CORPUSCULAR VOLUME 89 fL (79.0-98.0); MONOCYTES # (AUTO) 0.2 K/uL (0.0-1.0); NEUTROPHILS # (AUTO) 3.2 K/uL (1.8-7.7); PLATELET COUNT (AUTO) 161 K/uL (130-430); RED BLOOD CELL COUNT(AUTO) 3.29 MIL/uL (4.2-6.2); RED CELL DISTRIBUTION WIDTH 13.7 % (9.0-15.0); WHITE BLOOD COUNT (AUTO) 4.8 K/uL (4.8-10.8)
[2017-05-11] MEDS: INSULIN NPH/REGULAR 70-30, 100 UNITS/ML, 10 ML VIAL SUBCUT SCH ×2 (06:31→11:11)
[2017-05-11 06:54] LABS: ALBUMIN 2.8 g/dL (3.4-4.8); CALCIUM 9.1 mg/dL (8.4-11.0); CREATININE 0.71 mg/dL (0.55-1.30); POTASSIUM 3.9 mmol/L (3.5-5.1); TOTAL BILIRUBIN 1.1 mg/dL (0.0-1.0)
--- NOTE | 2017-05-11 07:40 | NUR ---
AM ROUNDS: PATIENT AWAKE DURING ROUNDS. IV INFILTRATED,DC. VITAL SIGNS TAKEN,AFEBRILE AND STABLE. CALL LIGHT WITH IN REACH.BED LOCKED AT LOWEST POSITION.
--- NOTE | 2017-05-11 07:50 | NUR ---
IV INFILTRATED: IV REMOVED AT LEFT HAND,DRY GAUZE APPLIED,NO BLEEDING NOTED.IV RE SITED AT RIGHT WRIST USING G#20,CONTINUE IV ANTIBIOTIC ORDERED.
[2017-05-11 08:16] VITALS: BP_SYST 129
[2017-05-11] MEDS: IBUPROFEN 600 MG TABLET PO PRN (08:44)
[2017-05-11] MEDS: LACTOBACILLUS RHAMNOSUS GG 1 CAP CAPSULE PO SCH (08:44)
[2017-05-11] MEDS: OMEPRAZOLE 20 MG CAPSULE.DR (PriLOSEC) PO SCH (08:45)
[2017-05-11] MEDS: VALSARTAN 80 MG TABLET (DIOVAN) PO SCH (08:45)
[2017-05-11] MEDS: POTASSIUM CHLORIDE 20 MEQ TAB.PRT.SR PO SCH (08:45)
[2017-05-11] MEDS: ASPIRIN 81 MG TABLET(ECOTRIN) PO SCH (08:45)
[2017-05-11] MEDS: metFORMIN HCL 500 MG TABLET PO SCH (08:45)
--- NOTE | 2017-05-11 11:15 | NUR ---
BLOOD SUGAR: BLOOD LRWQM=137BX/DL,NOVOLIN 70/30 12 UNITS SUBQ GIVEN ORDERED.
--- NOTE | 2017-05-11 11:36 | NUR ---
DC ORDERS: PATIENT SEEN BY DR ARELLANO WITH ORDERS DC HOME AND F/U WITH PCP AND [facility] IN 1 WEEK.
[2017-05-11 12:51] VITALS: BP_SYST 132
[2017-05-11 14:23] VITALS: BP_SYST 129
[2017-05-11] MEDS ORDERED: PRO40 PO (14:36)
--- NOTE | 2017-05-11 15:00 | NUR ---
DC NOTES: TRANSITIONAL CARE DOCUMENTS AND PRESCRIPTIONS GIVEN TO PATIENT. PATIENT VERBALIZED UNDERSTANDING OF DC INSTRUCTIONS. PERSONAL BELONGINGS SEND HOME WITH THE PATIENT.IV REMOVED,DRY GAUZE APPLIED,NO BLEEDING NOTED. ACCOMPANIED HOME BY HER DAUGHTER IN STABLE CONDITION.
[2017-05-11 16:50] VITALS: BP_SYST 129
--- NOTE | 2017-05-13 14:07 | NUR ---
Discharge Follow Up Phone Call [facility] phoned patient, . Patient stated she was doing okay. She filled her prescriptions and is taking her medication as directed. She is not getting infusion treatments as she was told she did not need it. She has a follow up appointment with her PCP on 05/15/17. Her pill box went missing while at the hospital. She has been in contact with Security and Pharmacy but it has not been found. Patient has no other questions or concerns.
== END 2017-05-11 15:00 | disposition home or self-care (01) | DRG 865 ==
LOC: EDSEX 16:09 → SED 16:09 → STU 22:18 → MERGE 22:18 → STU 22:55 → SMU 05-08 15:28
PROVIDERS: ADMIT Internal Medicine; ATTEND Internal Medicine
PROC: 0DJD8ZZ Inspection of Lower Intestinal Tract, Via Natural or Artificial Opening Endoscopic (ICD-10-PCS; 2017-05-10)
PROC: 0DB98ZX Excision of Duodenum, Via Natural or Artificial Opening Endoscopic, Diagnostic (ICD-10-PCS; principal; 2017-05-10 12:00)
PROC: 0DB68ZX Excision of Stomach, Via Natural or Artificial Opening Endoscopic, Diagnostic (ICD-10-PCS; 2017-05-10 12:00)
DX: B34.9 Viral infection, unspecified (principal); K29.71 Gastritis, unspecified, with bleeding; D61.818 Other pancytopenia; E44.0 Moderate protein-calorie malnutrition; K57.91 Diverticulosis of intestine, part unspecified, without perforation or abscess with bleeding; N12 Tubulo-interstitial nephritis, not specified as acute or chronic; D58.9 Hereditary hemolytic anemia, unspecified; R65.10 Systemic inflammatory response syndrome (SIRS) of non-infectious origin without acute organ dysfunction; R17 Unspecified jaundice; E11.65 Type 2 diabetes mellitus with hyperglycemia; N28.1 Cyst of kidney, acquired; E11.9 Type 2 diabetes mellitus without complications; E78.5 Hyperlipidemia, unspecified; K64.8 Other hemorrhoids; Z96.659 Presence of unspecified artificial knee joint; E66.9 Obesity, unspecified; B96.20 Unspecified Escherichia coli [E. coli] as the cause of diseases classified elsewhere; J06.9 Acute upper respiratory infection, unspecified; E87.6 Hypokalemia; D17.79 Benign lipomatous neoplasm of other sites; I10 Essential (primary) hypertension; Z79.82 Long term (current) use of aspirin; Z79.899 Other long term (current) drug therapy; Z88.5 Allergy status to narcotic agent; Z88.1 Allergy status to other antibiotic agents; Z90.49 Acquired absence of other specified parts of digestive tract; Z87.440 Personal history of urinary (tract) infections; Z87.891 Personal history of nicotine dependence; Z68.31 Body mass index [BMI] 31.0-31.9, adult
CPT/HCPCS: 36415; 71045; 76770; 80048; 80053; 80076; 81000-TC; 82272; 82607; 82728; 82746; 82962; 83036; 83540-TC; 83550-TC; 83605; 83615-TC; 83735-TC; 84439; 84443-TC; 85025; 85044-TC; 86710; 87040-TC; 87081; 87086; 87186-TC; 88305; 88312; 88313; 96361; 96365; 96375; 99285; G9035; J0696; J1580; J1815; J1885; J2175; J2250; J2405; J2543; J3490; J7030; J7050; J7060; J7120; Q9967

== ENCOUNTER 2020-10-03 18:15 | Inpatient (IN) | payer BC, OTHER, SELFPAY ==
[~2020-10-03] VITALS: Ht 165.1 cm; Wt 84.4 kg
[~2020-10-03 18:15] MED LIST: DITXL5 PO; INSU10VI4 SUBCUT; LIP40 PO; METF1000 PO; PRO40 PO; VALS80TA2 PO
[2020-10-03 18:25] VITALS: BP_SYST 140
[2020-10-03] MEDS ORDERED: ASPIRIN 81 MG TAB.CHEW PO ONE (18:30)
[2020-10-03] MEDS ORDERED: NITROGLYCERIN 1 INCH (GM) OINT. TD ONE (18:30)
[2020-10-03] MEDS ORDERED: NITROGLYCERIN 1 INCH (GM) OINT. ONE (18:46)
[2020-10-03 18:54] LABS: BASOPHILS # (AUTO) 0.1 K/uL (0.0-0.2); BASOPHILS % (AUTO) 0.9 % (0.0-2.0); EOSINOPHILS # (AUTO) 0.1 K/uL (0.0-0.4); EOSINOPHILS % (AUTO) 1.6 % (0.0-4.0); HEMOGLOBIN 13.9 g/dL (12.0-16.0); LYMPHOCYTES # (AUTO) 2.1 K/uL (1.0-5.5); MEAN CORPUSCULAR HEMOGLOBIN 31 pg (27-31); MEAN CORPUSCULAR HGB CONC 35 % (32-36); MEAN CORPUSCULAR VOLUME 91 fL (79.0-98.0); MONOCYTES # (AUTO) 0.3 K/uL (0.0-1.0); MONOCYTES % (AUTO) 4.2 % (1.7-9.3); NEUTROPHILS # (AUTO) 4.6 K/uL (1.8-7.7); NEUTROPHILS % (AUTO) 64.3 % (40.0-70.0); PLATELET COUNT (AUTO) 147 K/uL (130-430); RED BLOOD CELL COUNT(AUTO) 4.41 MIL/uL (4.2-6.2); RED CELL DISTRIBUTION WIDTH 13.3 % (9.0-15.0); WHITE BLOOD COUNT (AUTO) 7.2 K/uL (4.8-10.8)
[2020-10-03 19:11] LABS: CALCIUM 8.7 mg/dL (8.4-11.0); CREATININE 0.86 mg/dL (0.55-1.30)
[2020-10-03 19:15] LABS: ALBUMIN 3.5 g/dL (3.4-4.8); TOTAL BILIRUBIN 1.3 mg/dL (0.0-1.0)
[2020-10-03] MEDS ORDERED: OXYCODONE/ACETAMINOPHEN 5-325 TABLET PO ONE (20:00)
[2020-10-03 22:13] VITALS: BP_SYST 155
[2020-10-03] MEDS ORDERED: ZOLPIDEM TARTRATE 5 MG TABLET PO PRN (23:30)
[2020-10-03] MEDS ORDERED: MAG-AL HYDROX/SIMETH 30 ML UDC PO PRN (23:30)
[2020-10-03] MEDS: INSULIN LISPRO SLIDING SCALE 100 UNITS/ML VIAL (humaLOG) SUBCUT PRN (23:52)
[2020-10-04] VITALS: BP_SYST 130
[2020-10-04] MEDS ORDERED: MORPHINE 2 MG/ML INJ. SYRINGE IVP ONE (00:45)
[2020-10-04 04:10] LABS: BASOPHILS % (AUTO) 0.6 % (0.0-2.0); EOSINOPHILS # (AUTO) 0.2 K/uL (0.0-0.4); EOSINOPHILS % (AUTO) 2.6 % (0.0-4.0); HEMATOCRIT 37.3 % (36-48); HEMOGLOBIN 12.7 g/dL (12.0-16.0); LYMPHOCYTES % (AUTO) 33.6 % (20.5-51.5); MEAN CORPUSCULAR HEMOGLOBIN 31 pg (27-31); MEAN CORPUSCULAR HGB CONC 34 % (32-36); MEAN CORPUSCULAR VOLUME 91 fL (79.0-98.0); MONOCYTES # (AUTO) 0.3 K/uL (0.0-1.0); MONOCYTES % (AUTO) 4.7 % (1.7-9.3); NEUTROPHILS # (AUTO) 3.4 K/uL (1.8-7.7); NEUTROPHILS % (AUTO) 58.5 % (40.0-70.0); PLATELET COUNT (AUTO) 138 K/uL (130-430); RED BLOOD CELL COUNT(AUTO) 4.12 MIL/uL (4.2-6.2); RED CELL DISTRIBUTION WIDTH 13.1 % (9.0-15.0); WHITE BLOOD COUNT (AUTO) 5.9 K/uL (4.8-10.8)
[2020-10-04] MEDS ORDERED: OXYCODONE/ACETAMINOPHEN 5-325 TABLET PO ONE (04:30)
[2020-10-04 04:35] LABS: CHOLESTEROL 176 mg/dL (<200); HDL CHOLESTEROL 46 mg/dL (>55); LDL CHOLESTEROL 85 mg/dL (<100); TRIGLYCERIDES 313 mg/dL (30-150)
[2020-10-04] MEDS ORDERED: OXYCODONE/ACETAMINOPHEN 5-325 TABLET ONE (04:37)
[2020-10-04 04:53] LABS: ALANINE AMINOTRANSFERASE 18 U/L (12-78); ALBUMIN 3.1 g/dL (3.4-4.8); ANION GAP 11 (5-15); ASPARTATE AMINOTRANSFERASE 15 U/L (10-37); CALCIUM 8.5 mg/dL (8.4-11.0); CHLORIDE 108 mmol/L (98-107); CREATININE 0.72 mg/dL (0.55-1.30); GLUCOSE 152 mg/dL (70-99); POTASSIUM 3.7 mmol/L (3.5-5.1); SODIUM SERUM 143 mmol/L (136-145); THYROID STIMULATING HORMONE 4.37 uIu/mL (0.36-3.74); TOTAL BILIRUBIN 1.3 mg/dL (0.0-1.0); UREA NITROGEN, BLOOD 13 mg/dL (8-21)
[2020-10-04 04:55] LABS: GFR AFRICAN AMERICAN 103 mL/min (>90)
[2020-10-04 08:00] VITALS: BP_SYST 128
[2020-10-04] MEDS: ATORVASTATIN 20 MG TABLET PO SCH (08:24)
[2020-10-04] MEDS: ASPIRIN 81 MG TABLET(ECOTRIN) PO SCH (08:24)
[2020-10-04] MEDS: PANTOPRAZOLE SODIUM 40 MG TAB PO SCH (08:24)
[2020-10-04] MEDS: metFORMIN HCL 500 MG TABLET PO SCH ×2 (08:24→17:10)
[2020-10-04] MEDS: LOSARTAN POTASSIUM 50 MG TABLET (COZAAR) PO SCH (08:24)
[2020-10-04] MEDS ORDERED: VALSARTAN 80 MG TABLET (DIOVAN) PO SCH (09:00)
[2020-10-04 09:46] LABS: FREE T4 (FREE THYROXINE) 0.9 ng/dl (0.8-1.5)
[2020-10-04] MEDS: INSULIN LISPRO SLIDING SCALE 100 UNITS/ML VIAL (humaLOG) SUBCUT PRN ×3 (11:07→20:24)
[2020-10-04 11:30] VITALS: BP_SYST 127
[2020-10-04] MEDS ORDERED: MORPHINE 2 MG/ML INJ. SYRINGE IVP PRN (12:00)
[2020-10-04] MEDS ORDERED: NALOXONE HCL 0.4 MG/ML AMP (NARCAN) IVP PRN (12:00)
[2020-10-04] MEDS: IBUPROFEN 600 MG TABLET PO PRN ×2 (12:14→20:25)
[2020-10-04] MEDS: INSULIN NPH/REGULAR 70-30, 100 UNITS/ML, 10 ML VIAL SUBCUT SCH ×2 (12:24→20:22)
[2020-10-04 15:45] VITALS: BP_SYST 122
[2020-10-04 20:00] VITALS: BP_SYST 145
[2020-10-05 00:40] VITALS: BP_SYST 135; BP_SYST 162
[2020-10-05] MEDS: INSULIN LISPRO SLIDING SCALE 100 UNITS/ML VIAL (humaLOG) SUBCUT PRN ×2 (06:23→11:21)
[2020-10-05 07:09] LABS: CALCIUM 8.7 mg/dL (8.4-11.0); CREATININE 0.86 mg/dL (0.55-1.30)
[2020-10-05 08:00] VITALS: BP_SYST 144
[2020-10-05] MEDS ORDERED: REGADENOSON 0.4 MG/5 ML SYRINGE IVP ONE (09:00)
[2020-10-05] MEDS: ATORVASTATIN 20 MG TABLET PO SCH (10:01)
[2020-10-05] MEDS: metFORMIN HCL 500 MG TABLET PO SCH (10:01)
[2020-10-05] MEDS: LOSARTAN POTASSIUM 50 MG TABLET (COZAAR) PO SCH (10:01)
[2020-10-05] MEDS: ASPIRIN 81 MG TABLET(ECOTRIN) PO SCH (10:01)
[2020-10-05] MEDS: PANTOPRAZOLE SODIUM 40 MG TAB PO SCH (10:01)
[2020-10-05] MEDS: INSULIN NPH/REGULAR 70-30, 100 UNITS/ML, 10 ML VIAL SUBCUT SCH (10:03)
[2020-10-05 11:58] VITALS: BP_SYST 140
[2020-10-05] MEDS: IBUPROFEN 600 MG TABLET PO PRN (12:42)
[2020-10-05] MEDS ORDERED: INSU100V3 SQ (13:50)
[2020-10-05 14:01] VITALS: BP_SYST 147
== END 2020-10-05 14:35 | disposition home or self-care (01) | DRG 313 ==
LOC: SED 18:15 → STU 19:51
PROVIDERS: ADMIT Internal Medicine; ATTEND Internal Medicine
DX: R07.89 Other chest pain (principal); E11.9 Type 2 diabetes mellitus without complications; E66.9 Obesity, unspecified; E78.5 Hyperlipidemia, unspecified; I10 Essential (primary) hypertension; M17.12 Unilateral primary osteoarthritis, left knee; Z20.822 Contact with and (suspected) exposure to COVID-19; Z79.4 Long term (current) use of insulin; Z82.49 Family history of ischemic heart disease and other diseases of the circulatory system; Z85.43 Personal history of malignant neoplasm of ovary; Z87.891 Personal history of nicotine dependence; Z90.49 Acquired absence of other specified parts of digestive tract; Z68.31 Body mass index [BMI] 31.0-31.9, adult; Z71.6 Tobacco abuse counseling
CPT/HCPCS: 36415; 71045; 80048; 80053; 80061; 82962; 83735; 83880; 84439; 84443; 84484; 85025; 93005; 93017; 93306; 99285; G0378; J1815; J2270; J2785

== ENCOUNTER 2021-01-23 10:38 | Emergency (ER) | payer BC, OTHER ==
[~2021-01-23] VITALS: Ht 162.6 cm; Wt 81.6 kg
[~2021-01-23 10:38] MED LIST changes: +INSU100V3 SQ; -INSU10VI4 SUBCUT
[2021-01-23 11:50] VITALS: BP_SYST 178
--- NOTE | 2021-01-23 11:50 | NUR ---
Patient to ER bed 2 to gown for evaluation. Side rails up.
--- NOTE | 2021-01-23 12:00 | NUR ---
PT CAME IN FROM HOME C/O ABD DISTENTION AND PAIN X1 WEEK. REPORTS SHE HAS BEEN EATING CRACKERS AND CHICKEN BROTH AT HOME IN AN ATTEMPT TO CALM HER STOMACH DOWN. PT STATES SHE HAS HAD NAUSEA BUT NOT THROWING UP. ALSO REPORTS NORMAL BMS. PT IS AMBULATORY, AAOX4, V/S STABLE
--- NOTE | 2021-01-23 13:00 | NUR ---
PT SITTING UP IN GURNEY, AWAKE, ALERT, V/S STABLE, NO DISTRESS NOTED
--- NOTE | 2021-01-23 14:00 | NUR ---
ER DR. WHIPPLE AT THE BEDSIDE EXAMINING PT
[2021-01-23] MEDS ORDERED: FAMOTIDINE PF 20 MG/2 ML VIAL IVP ONE (14:15)
[2021-01-23] MEDS ORDERED: ONDANSETRON HCL 4 MG/2 ML VIAL IVP ONE (14:15)
--- NOTE | 2021-01-23 14:28 | NUR ---
PT AMBULATES TO BATHROOM WITH STEADY GAIT, PROVIDED URINE SAMPLE
--- NOTE | 2021-01-23 14:45 | NUR ---
# 20 gauge angiocath placed to RAC. Use of asceptic technique. Opsite placed over site. Blood return noted. Blood for lab drawn from site. Flushed with 10 cc of normal saline. No evidence of infiltration noted. Patient tolerated well.
[2021-01-23 14:49] LABS: BILIRUBIN,URINE NEGATIVE (NEGATIVE); BLOOD, URINE NEGATIVE (NEGATIVE); CLARITY/URINE CLEAR (CLEAR); COLOR,URINE YELLOW (YELLOW); GLUCOSE,URINE 3+ (NEGATIVE); KETONES,URINE NEGATIVE (NEGATIVE); LEUKOCYTE ESTERASE ,URINE NEGATIVE (NEGATIVE); NITRITE, URINE NEGATIVE (NEGATIVE); PROTEIN URINE NEGATIVE (NEGATIVE); UROBILINOGEN,URINE 0.2 (0.2-1.0)
[2021-01-23 14:59] LABS: BASOPHILS % (AUTO) 0.4 % (0.0-2.0); EOSINOPHILS # (AUTO) 0.1 K/uL (0.0-0.4); HEMATOCRIT 40.4 % (36-48); HEMOGLOBIN 13.9 g/dL (12.0-16.0); LYMPHOCYTES # (AUTO) 1.6 K/uL (1.0-5.5); LYMPHOCYTES % (AUTO) 27.4 % (20.5-51.5); MEAN CORPUSCULAR HEMOGLOBIN 31 pg (27-31); MEAN CORPUSCULAR HGB CONC 34 % (32-36); MEAN CORPUSCULAR VOLUME 90 fL (79.0-98.0); MONOCYTES # (AUTO) 0.2 K/uL (0.0-1.0); NEUTROPHILS % (AUTO) 67.2 % (40.0-70.0); PLATELET COUNT (AUTO) 143 K/uL (130-430); RED BLOOD CELL COUNT(AUTO) 4.51 MIL/uL (4.2-6.2); RED CELL DISTRIBUTION WIDTH 13.9 % (9.0-15.0); WHITE BLOOD COUNT (AUTO) 5.9 K/uL (4.8-10.8)
[2021-01-23 15:01] LABS: BACTERIA,URINE FEW /HPF (None Seen); RBC,URINE 0-3 /HPF (0-3); WBC,URINE 0-3 /HPF (0-3)
[2021-01-23 15:18] LABS: ANION GAP 7 (5-15); CALCIUM 9.3 mg/dL (8.4-11.0); CHLORIDE 103 mmol/L (98-107); CREATININE 0.73 mg/dL (0.55-1.30); GLUCOSE 241 mg/dL (70-99); POTASSIUM 3.5 mmol/L (3.5-5.1); SODIUM SERUM 139 mmol/L (136-145); UREA NITROGEN, BLOOD 6 mg/dL (8-21)
[2021-01-23 15:26] LABS: ALANINE AMINOTRANSFERASE 31 U/L (12-78); ALBUMIN 3.7 g/dL (3.4-4.8); ASPARTATE AMINOTRANSFERASE 14 U/L (10-37); LIPASE 128 U/L (73-393); TOTAL BILIRUBIN 1.7 mg/dL (0.0-1.0)
[2021-01-23 15:36] LABS: GFR AFRICAN AMERICAN 102 mL/min (>90)
[2021-01-23] MEDS ORDERED: LR 1,000 ML IV ONE (15:45)
[2021-01-23] MEDS ORDERED: DIPHENHYDRAMINE INJ 50 MG/ML VIAL IVP ONE (16:00)
[2021-01-23] MEDS ORDERED: METOCLOPRAMIDE HCL 10 MG/2 ML VIAL IVP ONE (16:00)
--- NOTE | 2021-01-23 16:30 | NUR ---
PT AMBULATES TO BATHROOM WITH STEADY GAIT
[2021-01-23] MEDS ORDERED: ONDA-8 TL (17:19)
[2021-01-23] MEDS ORDERED: DICY10SO PO (17:19)
[2021-01-23 18:30] VITALS: BP_SYST 143
--- NOTE | 2021-01-23 18:30 | NUR ---
Patient given written and verbal discharge instructions and verbalizes understanding. ER MD discussed with patient the results and treatment provided. Patient in stable condition. ID arm band removed. IV catheter removed intact and dressing applied, no active bleeding. Rx of ZOFRAN AND DICYCLOMINE given. Patient educated on pain management and to follow up with PMD. Pain Scale 0/10. Opportunity for questions provided and answered. Medication side effect fact sheet provided.
== END 2021-01-23 18:30 | disposition home or self-care (01) ==
LOC: SED 10:38
DX: K52.9 Noninfective gastroenteritis and colitis, unspecified (principal); R07.2 Precordial pain; K21.9 Gastro-esophageal reflux disease without esophagitis; I10 Essential (primary) hypertension; E11.9 Type 2 diabetes mellitus without complications; E78.00 Pure hypercholesterolemia, unspecified; Z88.1 Allergy status to other antibiotic agents; Z88.5 Allergy status to narcotic agent; Z79.4 Long term (current) use of insulin; Z79.899 Other long term (current) drug therapy
CPT/HCPCS: 36415; 80053; 81000; 83690; 84484; 85025; 93005; 96361; 96374; 96375; 99285; J1200; J2405; J2765; J3490

== ENCOUNTER 2021-07-08 12:55 | Emergency (ER) | payer BC, OTHER ==
[~2021-07-08] VITALS: Ht 165.1 cm; Wt 82.1 kg
[~2021-07-08 12:55] MED LIST changes: +DICY10SO PO; +ONDA-8 TL
[2021-07-08 13:00] VITALS: BP_SYST 181
--- NOTE | 2021-07-08 13:10 | NUR ---
Patient to ER bed 5 to gown for evaluation. Side rails up. Assumed care.
--- NOTE | 2021-07-08 13:30 | NUR ---
Pt. here c/o rectal and abd. pain, has hx. of diverticulitis and colorectal surgery, stated 3 days ago had some rectal bleeding with pain, bleeding resolved within first day but pain continues, rates it 10/07
--- NOTE | 2021-07-08 14:14 | NUR ---
ER at bedside examining patient.
[2021-07-08] MEDS ORDERED: DOCU-144 PO (14:21)
[2021-07-08] MEDS ORDERED: ANURH RC (14:21)
[2021-07-08 14:47] LABS: BASOPHILS % (AUTO) 0.7 % (0.0-2.0); EOSINOPHILS % (AUTO) 0.9 % (0.0-4.0); HEMATOCRIT 38.8 % (36-48); HEMOGLOBIN 13.5 g/dL (12.0-16.0); LYMPHOCYTES # (AUTO) 1.3 K/uL (1.0-5.5); LYMPHOCYTES % (AUTO) 26.8 % (20.5-51.5); MEAN CORPUSCULAR HEMOGLOBIN 31 pg (27-31); MEAN CORPUSCULAR HGB CONC 35 % (32-36); MEAN CORPUSCULAR VOLUME 88 fL (79.0-98.0); MONOCYTES # (AUTO) 0.2 K/uL (0.0-1.0); NEUTROPHILS # (AUTO) 3.2 K/uL (1.8-7.7); NEUTROPHILS % (AUTO) 67.6 % (40.0-70.0); PLATELET COUNT (AUTO) 137 K/uL (130-430); RED BLOOD CELL COUNT(AUTO) 4.43 MIL/uL (4.2-6.2); RED CELL DISTRIBUTION WIDTH 14.1 % (9.0-15.0); WHITE BLOOD COUNT (AUTO) 4.7 K/uL (4.8-10.8)
[2021-07-08 14:55] LABS: ANION GAP 8 (5-15); CALCIUM 8.4 mg/dL (8.4-11.0); CHLORIDE 102 mmol/L (98-107); CREATININE 0.78 mg/dL (0.55-1.30); GLUCOSE 335 mg/dL (70-99); POTASSIUM 3.8 mmol/L (3.5-5.1); SODIUM SERUM 136 mmol/L (136-145); UREA NITROGEN, BLOOD 15 mg/dL (8-21)
[2021-07-08 14:57] LABS: GFR AFRICAN AMERICAN 94 mL/min (>90)
[2021-07-08 14:59] LABS: ALANINE AMINOTRANSFERASE 28 U/L (12-78); ALBUMIN 3.7 g/dL (3.4-4.8); AMYLASE 27 U/L (0-100); ASPARTATE AMINOTRANSFERASE 20 U/L (10-37); LIPASE 184 U/L (73-393); TOTAL BILIRUBIN 1.7 mg/dL (0.0-1.0)
[2021-07-08 15:00] LABS: C-REACTIVE PROTEIN QUANT < 0.2 mg/dL (0-0.5)
--- NOTE | 2021-07-08 16:07 | NUR ---
Dr. Ronquillo at bedside reviewing test results with pt.
[2021-07-08] MEDS ORDERED: INSULIN REGULAR, HUMAN 10 UNITS/0.1 ML INJ SUBCUT ONE (16:15)
[2021-07-08 16:40] VITALS: BP_SYST 157
--- NOTE | 2021-07-08 16:40 | NUR ---
Patient given written and verbal discharge instructions and verbalizes understanding. ER discussed with patient the results and treatment provided. Patient in stable condition. ID arm band removed. Rx of anusol and colace given. Patient educated on pain management and to follow up with PMD. Pain Scale 5. Opportunity for questions provided and answered. Medication side effect fact sheet provided.
== END 2021-07-08 16:40 | disposition home or self-care (01) ==
LOC: SED 12:55
DX: K64.4 Residual hemorrhoidal skin tags (principal); E11.65 Type 2 diabetes mellitus with hyperglycemia; R10.30 Lower abdominal pain, unspecified; I10 Essential (primary) hypertension; E78.00 Pure hypercholesterolemia, unspecified; Z88.5 Allergy status to narcotic agent; Z79.899 Other long term (current) drug therapy
CPT/HCPCS: 36415; 74176; 76376; 80053; 81002; 82150; 83605; 83690; 85025; 86140; 96372; 99284; J1815

== ENCOUNTER 2021-11-28 16:34 | Emergency (ER) | payer OTHER ==
[~2021-11-28] VITALS: Ht 172.7 cm; Wt 82.1 kg
[~2021-11-28 16:34] MED LIST changes: +ANURH RC; +DOCU-144 PO
[2021-11-28 16:44] VITALS: BP_SYST 144
[2021-11-28] MEDS ORDERED: DIAZ5TAB PO (17:45)
[2021-11-28] MEDS ORDERED: ACET-2634 PO (17:45)
[2021-11-28 17:57] VITALS: BP_SYST 144
== END 2021-11-28 17:57 | disposition home or self-care (01) ==
LOC: SED 16:34
DX: S39.012A Strain of muscle, fascia and tendon of lower back, initial encounter (principal); Z79.899 Other long term (current) drug therapy; V89.2XXA Person injured in unspecified motor-vehicle accident, traffic, initial encounter; Y93.89 Activity, other specified; Y92.89 Other specified places as the place of occurrence of the external cause; Y99.8 Other external cause status
CPT/HCPCS: 99283

== ENCOUNTER 2021-12-21 11:15 | Emergency (ER) | payer OTHER ==
[~2021-12-21] VITALS: Ht 165.1 cm; Wt 80.3 kg
[~2021-12-21 11:15] MED LIST changes: +ACET-2634 PO; +DIAZ5TAB PO
[2021-12-21] MEDS ORDERED: CLOTRIMAZOLE/BETAMET DIPROP 15 GM TUBE TP ONE (12:15)
--- NOTE | 2021-12-21 12:29 | NUR ---
Patient to ER bed 02 to gown for evaluation. Side rails up. Report RECEIVED FROM LEONIE COREY.
--- NOTE | 2021-12-21 12:30 | NUR ---
Pt came from home c/o rash times 6 days. Pt has hx of htn, Type II DM and incontinence. Pt is A&Ox4, calm and cooperative, VSS. Rash located bilat in the folds of skin above abdomen. Pt states the rash hernandez and has a smell. Will monitor and provide care as ordered.
--- NOTE | 2021-12-21 12:34 | NUR ---
JOHNNY Chin at bedside examining patient.
[2021-12-21] MEDS ORDERED: NACL 0.9% 1,000 ML IV ONE (13:00)
[2021-12-21 13:27] LABS: BASOPHILS % (AUTO) 0.6 % (0.0-2.0); EOSINOPHILS % (AUTO) 0.9 % (0.0-4.0); HEMATOCRIT 39.3 % (36-48); LYMPHOCYTES % (AUTO) 19.1 % (20.5-51.5); MEAN CORPUSCULAR VOLUME 90 fL (79.0-98.0); MONOCYTES # (AUTO) 0.2 K/uL (0.0-1.0); MONOCYTES % (AUTO) 4.6 % (1.7-9.3); NEUTROPHILS # (AUTO) 3.9 K/uL (1.8-7.7); NEUTROPHILS % (AUTO) 74.8 % (40.0-70.0); PLATELET COUNT (AUTO) 135 K/uL (130-430); RED BLOOD CELL COUNT(AUTO) 4.39 MIL/uL (4.2-6.2); RED CELL DISTRIBUTION WIDTH 14.1 % (9.0-15.0); WHITE BLOOD COUNT (AUTO) 5.2 K/uL (4.8-10.8)
[2021-12-21 13:36] VITALS: BP_SYST 147
--- NOTE | 2021-12-21 13:54 | NUR ---
Patient to ER bed H2 to gown for evaluation. Side rails up.
[2021-12-21] MEDS ORDERED: CLOT15CR5 TP (14:01)
[2021-12-21] MEDS ORDERED: TOLN133P TP (14:01)
[2021-12-21 14:16] LABS: ANION GAP 11 (5-15); CALCIUM 9.1 mg/dL (8.4-11.0); CHLORIDE 101 mmol/L (98-107); CREATININE 0.84 mg/dL (0.55-1.30); GLUCOSE 343 mg/dL (70-99); POTASSIUM 4.1 mmol/L (3.5-5.1); UREA NITROGEN, BLOOD 11 mg/dL (8-21)
[2021-12-21 14:27] LABS: ALANINE AMINOTRANSFERASE 23 U/L (12-78); ALBUMIN 3.7 g/dL (3.4-4.8); ASPARTATE AMINOTRANSFERASE 27 U/L (10-37); TOTAL BILIRUBIN 2.7 mg/dL (0.0-1.0)
[2021-12-21 14:31] LABS: GFR AFRICAN AMERICAN 86 mL/min (>90)
[2021-12-21 14:45] LABS: BILIRUBIN,URINE NEGATIVE (NEGATIVE); BLOOD, URINE NEGATIVE (NEGATIVE); CLARITY/URINE CLEAR (CLEAR); COLOR,URINE YELLOW (YELLOW); GLUCOSE,URINE 3+ (NEGATIVE); KETONES,URINE TRACE (NEGATIVE); LEUKOCYTE ESTERASE ,URINE NEGATIVE (NEGATIVE); NITRITE, URINE NEGATIVE (NEGATIVE); PH,URINE 5.5 (5.0-8.0); PROTEIN URINE NEGATIVE (NEGATIVE); UROBILINOGEN,URINE 0.2 (0.2-1.0)
--- NOTE | 2021-12-21 14:59 | NUR ---
Patient given written and verbal discharge instructions and verbalizes understanding. ER DR. PETE MD discussed with patient the results and treatment provided. Patient in stable condition. ID arm band removed. IV catheter removed intact and dressing applied, no active bleeding. Rx of CLOTRIMAZOLE, TOLNAFTATE given. Patient educated on pain management and to follow up with PMD. Pain Scale 0/10. Opportunity for questions provided and answered. Medication side effect fact sheet provided.
== END 2021-12-21 14:59 | disposition home or self-care (01) ==
LOC: SED 11:15
DX: B35.4 Tinea corporis (principal); E11.9 Type 2 diabetes mellitus without complications; E66.9 Obesity, unspecified; I10 Essential (primary) hypertension; Z88.1 Allergy status to other antibiotic agents; Z88.5 Allergy status to narcotic agent; Z79.4 Long term (current) use of insulin; Z79.899 Other long term (current) drug therapy
CPT/HCPCS: 99283; 96360; 80053; 82962; 85025; 87040; 87086; 84484; 36415; 83605; 81003; J7030

== ENCOUNTER 2022-02-28 18:20 | Emergency (ER) | payer OTHER ==
[~2022-02-28] VITALS: Ht 165.1 cm; Wt 77.1 kg
[2022-02-28 18:20] VITALS: BP_SYST 205
[~2022-02-28 18:20] MED LIST changes: +CLOT15CR5 TP; +TOLN133P TP
[2022-02-28 20:08] LABS: BASOPHILS % (AUTO) 0.7 % (0.0-2.0); EOSINOPHILS # (AUTO) 0.1 K/uL (0.0-0.4); HEMATOCRIT 41.7 % (36-48); HEMOGLOBIN 14.7 g/dL (12.0-16.0); LYMPHOCYTES # (AUTO) 2.1 K/uL (1.0-5.5); LYMPHOCYTES % (AUTO) 29.6 % (20.5-51.5); MEAN CORPUSCULAR HEMOGLOBIN 32 pg (27-31); MEAN CORPUSCULAR HGB CONC 35 % (32-36); MEAN CORPUSCULAR VOLUME 91 fL (79.0-98.0); MONOCYTES # (AUTO) 0.3 K/uL (0.0-1.0); MONOCYTES % (AUTO) 4.4 % (1.7-9.3); NEUTROPHILS # (AUTO) 4.6 K/uL (1.8-7.7); NEUTROPHILS % (AUTO) 64.3 % (40.0-70.0); PLATELET COUNT (AUTO) 157 K/uL (130-430); RED CELL DISTRIBUTION WIDTH 13.4 % (9.0-15.0); WHITE BLOOD COUNT (AUTO) 7.2 K/uL (4.8-10.8)
[2022-02-28 20:24] LABS: CREATININE 0.88 mg/dL (0.55-1.30)
[2022-02-28 20:30] LABS: ALBUMIN 3.8 g/dL (3.4-4.8); TOTAL BILIRUBIN 1.8 mg/dL (0.0-1.0)
[2022-02-28 20:41] LABS: CALCIUM 9.3 mg/dL (8.4-11.0)
[2022-02-28 22:56] LABS: BILIRUBIN,URINE NEGATIVE (NEGATIVE); BLOOD, URINE NEGATIVE (NEGATIVE); COLOR,URINE YELLOW (YELLOW); GLUCOSE,URINE 3+ (NEGATIVE); KETONES,URINE TRACE (NEGATIVE); LEUKOCYTE ESTERASE ,URINE NEGATIVE (NEGATIVE); NITRITE, URINE NEGATIVE (NEGATIVE); PH,URINE 5.5 (5.0-8.0); PROTEIN URINE NEGATIVE (NEGATIVE); UROBILINOGEN,URINE 0.2 (0.2-1.0)
[2022-02-28 22:58] LABS: CLARITY/URINE HAZY (CLEAR)
--- NOTE | 2022-02-28 23:10 | NUR ---
[id number]- ER examined patient as documented by him
[2022-02-28 23:12] VITALS: BP_SYST 150
--- NOTE | 2022-02-28 23:12 | NUR ---
Patient given written and verbal discharge instructions by Dr Felton and verbalizes understanding. ER MD Dr Felton discussed with patient the results and treatment provided. Patient in stable condition. No Rx given. Patient educated on pain management and to follow up with PMD. Opportunity for questions provided and answered by Dr Felton.
[2022-02-28 23:17] LABS: BACTERIA,URINE FEW /HPF (None Seen); MUCUS,URINE 1+ /LPF (None Seen); RBC,URINE 0-3 /HPF (0-3); WBC,URINE 0-3 /HPF (0-3)
== END 2022-02-28 23:12 | disposition home or self-care (01) ==
LOC: SED 18:20
DX: R10.31 Right lower quadrant pain (principal); E11.9 Type 2 diabetes mellitus without complications; I10 Essential (primary) hypertension; Z88.1 Allergy status to other antibiotic agents; Z88.5 Allergy status to narcotic agent; Z79.899 Other long term (current) drug therapy
CPT/HCPCS: 36415; 76376; 80053; 81000; 85025; 99284

== ENCOUNTER 2022-11-04 15:45 | Inpatient (IN) | payer OTHER, MEDICAID ==
[~2022-11-04] VITALS: Ht 165.1 cm; Wt 78.5 kg
[2022-11-04 15:47] VITALS: BP_SYST 157; PULSE 76; RESP 20; TEMP 98.4; O2SAT 98
[2022-11-04] MEDS ORDERED: iohexoL 350 mgI/mL, 100 ML INFUS..BTL IV ONE (16:00)
[2022-11-04 16:32] LABS: BASOPHILS # (AUTO) 0.1 K/uL (0.0-0.2); BASOPHILS % (AUTO) 0.9 % (0.0-2.0); EOSINOPHILS # (AUTO) 0.1 K/uL (0.0-0.4); HEMOGLOBIN 12.6 g/dL (12.0-16.0); LYMPHOCYTES # (AUTO) 1.4 K/uL (1.0-5.5); LYMPHOCYTES % (AUTO) 23.6 % (20.5-51.5); MEAN CORPUSCULAR HEMOGLOBIN 33 pg (27-31); MEAN CORPUSCULAR HGB CONC 34 % (32-36); MEAN CORPUSCULAR VOLUME 96 fL (79.0-98.0); MONOCYTES # (AUTO) 0.3 K/uL (0.0-1.0); MONOCYTES % (AUTO) 4.9 % (1.7-9.3); NEUTROPHILS % (AUTO) 68.6 % (40.0-70.0); PLATELET COUNT (AUTO) 139 K/uL (130-430); RED BLOOD CELL COUNT(AUTO) 3.87 MIL/uL (4.2-6.2); RED CELL DISTRIBUTION WIDTH 13.3 % (9.0-15.0); WHITE BLOOD COUNT (AUTO) 5.8 K/uL (4.8-10.8)
[2022-11-04 16:54] LABS: PROTHROMBIN TIME 10.8 SECS (9.5-12.5)
[2022-11-04 17:25] LABS: ALANINE AMINOTRANSFERASE 9 U/L (12-78); ALBUMIN 3.3 g/dL (3.4-4.8); ANION GAP 7 (5-15); ASPARTATE AMINOTRANSFERASE 11 U/L (10-37); CALCIUM 8.7 mg/dL (8.4-11.0); CARBON DIOXIDE 26 mmol/L (23-29); CHLORIDE 101 mmol/L (98-107); CREATININE 0.97 mg/dL (0.55-1.30); GLUCOSE 251 mg/dL (74-106); POTASSIUM 4.1 mmol/L (3.5-5.1); SODIUM SERUM 134 mmol/L (136-145); TOTAL BILIRUBIN 1.9 mg/dL (0.0-1.0); TOTAL PROTEIN, SERUM 5.8 g/dL (6.4-8.3); UREA NITROGEN, BLOOD 14 mg/dL (8-21)
[2022-11-04 17:27] LABS: CREATINE KINASE, TOTAL 91 U/L (26-192)
[2022-11-04] MEDS ORDERED: HYDR25TA4 PO (18:56)
[2022-11-04 22:43] VITALS: BP_SYST 149; PULSE 62; RESP 16; TEMP 99
[2022-11-05] VITALS (7 sets, daily range): BP systolic 139–157; PULSE 58–75; RESP 15–18; TEMP 96.4–97.4; O2SAT 96–98
[2022-11-05] MEDS: GABAPENTIN 300 MG CAPSULE PO SCH ×3 (08:38→20:53)
[2022-11-05] MEDS ORDERED: LORazepam 2 MG/ML VIAL IVP PRN (09:45)
[2022-11-05] MEDS ORDERED: ONDANSETRON HCL 4 MG/2 ML VIAL IVP PRN (09:45)
[2022-11-05] MEDS ORDERED: ACETAMINOPHEN 325 MG TABLET PO PRN ×2 (09:45→10:45)
[2022-11-05] MEDS ORDERED: ONDANSETRON 4 MG ODT TAB TL PRN (09:45)
[2022-11-05] MEDS ORDERED: DIAZEPAM 5 MG TABLET (VALIUM) PO PRN (09:45)
[2022-11-05] MEDS ORDERED: OXYBUTYNIN CHLORIDE 5 MG XL TAB PO SCH (09:45)
[2022-11-05] MEDS ORDERED: PANTOPRAZOLE SODIUM 40 MG TAB PO SCH (09:45)
[2022-11-05] MEDS ORDERED: ASPIRIN 81 MG TAB.CHEW PO ONE (11:00)
[2022-11-05] MEDS ORDERED: HYDROCHLOROTHIAZIDE 25 MG TABLET (HCTZ) PO ONE (11:00)
[2022-11-05 11:26] LABS: CHOLESTEROL 183 mg/dL (<200); HDL CHOLESTEROL 55 mg/dL (>55); TRIGLYCERIDES 353 mg/dL (30-150)
[2022-11-05] MEDS: INSULIN REGULAR, HUMAN 100 UNITS/ML, 3 ML VIAL (humuLIN R) SUBCUT PRN ×3 (12:13→21:03)
[2022-11-05] MEDS ORDERED: DICYCLOMINE HCL 10 MG/5 ML SOLUTION PO SCH (15:00)
[2022-11-05] MEDS ORDERED: TOLNAFTATE TP SCH (15:00)
[2022-11-05] MEDS ORDERED: HYDROCORTISONE ACETATE 1 SUPP (ANUSOL HC) RC SCH (15:00)
[2022-11-05] MEDS: NORMAL SALINE 5 ML DISP.SYRIN IVF SCH ×2 (16:24→22:41)
[2022-11-05] MEDS: metFORMIN HCL 500 MG TABLET PO SCH (17:31)
[2022-11-05] MEDS: DOCUSATE SODIUM 100 MG CAPSULE PO SCH (20:53)
[2022-11-05] MEDS ORDERED: ATORVASTATIN 20 MG TABLET PO SCH (21:00)
[2022-11-05] MEDS ORDERED: INSULIN Lispro Prot/Lispro MIX 75-25, 100 UNITS/ML, 10 ML VIAL SQ SCH (21:00)
[2022-11-05] MEDS ORDERED: CLOTRIMAZOLE/BETAMET DIPROP 15 GM TUBE TP SCH (21:00)
[2022-11-06 00:49] VITALS: BP_SYST 142; PULSE 76; RESP 18; TEMP 98.2; O2SAT 94
[2022-11-06 06:18] LABS: BASOPHILS % (AUTO) 0.8 % (0.0-2.0); EOSINOPHILS # (AUTO) 0.2 K/uL (0.0-0.4); EOSINOPHILS % (AUTO) 4.2 % (0.0-4.0); HEMATOCRIT 38.1 % (36-48); HEMOGLOBIN 13.3 g/dL (12.0-16.0); LYMPHOCYTES # (AUTO) 1.6 K/uL (1.0-5.5); MEAN CORPUSCULAR HEMOGLOBIN 33 pg (27-31); MEAN CORPUSCULAR HGB CONC 35 % (32-36); MEAN CORPUSCULAR VOLUME 95 fL (79.0-98.0); MONOCYTES # (AUTO) 0.3 K/uL (0.0-1.0); NEUTROPHILS # (AUTO) 3.6 K/uL (1.8-7.7); PLATELET COUNT (AUTO) 134 K/uL (130-430); RED CELL DISTRIBUTION WIDTH 13.5 % (9.0-15.0); WHITE BLOOD COUNT (AUTO) 5.7 K/uL (4.8-10.8)
[2022-11-06] MEDS: NORMAL SALINE 5 ML DISP.SYRIN IVF SCH ×2 (06:24→17:47)
[2022-11-06] MEDS: INSULIN REGULAR, HUMAN 100 UNITS/ML, 3 ML VIAL (humuLIN R) SUBCUT PRN ×3 (06:28→18:09)
[2022-11-06 06:48] LABS: ANION GAP 6 (5-15); CALCIUM 8.8 mg/dL (8.4-11.0); CARBON DIOXIDE 29 mmol/L (23-29); CHLORIDE 102 mmol/L (98-107); CREATININE 0.77 mg/dL (0.55-1.30); GLUCOSE 200 mg/dL (74-106); POTASSIUM 3.5 mmol/L (3.5-5.1); SODIUM SERUM 137 mmol/L (136-145); UREA NITROGEN, BLOOD 11 mg/dL (8-21)
[2022-11-06] MEDS ORDERED: OXYB10TA4 PO (06:57)
[2022-11-06 08:00] VITALS: BP_SYST 140; PULSE 72; RESP 16; TEMP 97; O2SAT 96
[2022-11-06] MEDS ORDERED: HYDROCHLOROTHIAZIDE 25 MG TABLET (HCTZ) PO SCH (09:00)
[2022-11-06] MEDS ORDERED: ASPIRIN 81 MG TAB.CHEW PO SCH (09:00)
[2022-11-06] MEDS ORDERED: LOSARTAN POTASSIUM 50 MG TABLET (COZAAR) PO SCH (09:00)
[2022-11-06] MEDS ORDERED: ASA81 PO (09:43)
[2022-11-06] MEDS ORDERED: NEU300 PO (09:43)
[2022-11-06] MEDS: metFORMIN HCL 500 MG TABLET PO SCH ×2 (09:55→18:07)
[2022-11-06] MEDS: DOCUSATE SODIUM 100 MG CAPSULE PO SCH (09:56)
[2022-11-06] MEDS: GABAPENTIN 300 MG CAPSULE PO SCH ×2 (10:30→18:07)
[2022-11-06 12:00] VITALS: BP_SYST 145; PULSE 71; RESP 20; TEMP 97; O2SAT 100
[2022-11-06 16:00] VITALS: BP_SYST 135; PULSE 70; RESP 20; TEMP 97; O2SAT 100
[2022-11-06 17:05] VITALS: BP_SYST 135; PULSE 70; RESP 20; TEMP 97; O2SAT 100
[2022-11-06 17:08] VITALS: BP_SYST 135; PULSE 70; RESP 20; TEMP 97; O2SAT 100
== END 2022-11-06 18:20 | disposition home or self-care (01) | DRG 74 ==
LOC: SED 15:45 → STU 17:15 → SMU 11-05 18:04
PROVIDERS: ADMIT Preventive Medicine Preventive Medicine/Occupational Environmental Medicine; ATTEND Preventive Medicine Preventive Medicine/Occupational Environmental Medicine
DX: M54.12 Radiculopathy, cervical region (principal); R07.89 Other chest pain; K21.9 Gastro-esophageal reflux disease without esophagitis; I10 Essential (primary) hypertension; N32.81 Overactive bladder; E11.42 Type 2 diabetes mellitus with diabetic polyneuropathy; E11.65 Type 2 diabetes mellitus with hyperglycemia; E78.00 Pure hypercholesterolemia, unspecified; Z85.43 Personal history of malignant neoplasm of ovary; Z88.1 Allergy status to other antibiotic agents; Z88.5 Allergy status to narcotic agent; Z79.899 Other long term (current) drug therapy; Z79.82 Long term (current) use of aspirin
CPT/HCPCS: 36415; 70450-TC; 70496; 70498; 70551; 71045; 76376; 80048; 80053; 80061; 82550; 82962; 83037; 84484; 85025; 85610-TC; 85730-TC; 93005; 93306; 97116-GP; 97163-GP; 97530-GP; 99291; G0378; Q9967

== ENCOUNTER 2023-03-21 14:40 | Emergency (ER) | payer OTHER, MEDICAID ==
[~2023-03-21] VITALS: Ht 165.1 cm; Wt 76.2 kg
[~2023-03-21 14:40] MED LIST changes: +ASA81 PO; -DITXL5 PO; +HYDR25TA4 PO; +NEU300 PO; +OXYB10TA4 PO; -PRO40 PO
[2023-03-21 15:32] VITALS: BP_SYST 139; PULSE 80; RESP 18; TEMP 98.2; O2SAT 97
[2023-03-21 16:59] LABS: BILIRUBIN,URINE NEGATIVE (NEGATIVE); BLOOD, URINE NEGATIVE (NEGATIVE); CLARITY/URINE CLEAR (CLEAR); COLOR,URINE YELLOW (YELLOW); GLUCOSE,URINE 2+ (NEGATIVE); KETONES,URINE NEGATIVE (NEGATIVE); NITRITE, URINE NEGATIVE (NEGATIVE); PROTEIN URINE TRACE (NEGATIVE); UROBILINOGEN,URINE 0.2 (0.2-1.0)
[2023-03-21 17:06] LABS: LEUKOCYTE ESTERASE ,URINE 1+ (NEGATIVE)
[2023-03-21 17:07] LABS: BACTERIA,URINE RARE /HPF (None Seen); MUCUS,URINE None Seen /LPF (None Seen); RBC,URINE 0-3 /HPF (0-3)
[2023-03-21] MEDS ORDERED: NITR-85 PO (19:20)
[2023-03-21 19:52] LABS: BASOPHILS # (AUTO) 0.1 K/uL (0.0-0.2); BASOPHILS % (AUTO) 0.7 % (0.0-2.0); EOSINOPHILS # (AUTO) 0.1 K/uL (0.0-0.4); EOSINOPHILS % (AUTO) 1.5 % (0.0-4.0); HEMATOCRIT 39.6 % (36-48); HEMOGLOBIN 13.7 g/dL (12.0-16.0); LYMPHOCYTES # (AUTO) 2.5 K/uL (1.0-5.5); MEAN CORPUSCULAR HEMOGLOBIN 33 pg (27-31); MEAN CORPUSCULAR HGB CONC 35 % (32-36); MEAN CORPUSCULAR VOLUME 96 fL (79.0-98.0); MONOCYTES # (AUTO) 0.3 K/uL (0.0-1.0); MONOCYTES % (AUTO) 4.1 % (1.7-9.3); NEUTROPHILS % (AUTO) 62.7 % (40.0-70.0); PLATELET COUNT (AUTO) 178 K/uL (130-430); RED BLOOD CELL COUNT(AUTO) 4.15 MIL/uL (4.2-6.2); RED CELL DISTRIBUTION WIDTH 12.6 % (9.0-15.0)
[2023-03-21 20:08] LABS: ALANINE AMINOTRANSFERASE 22 U/L (12-78); ALBUMIN 3.8 g/dL (3.4-4.8); ANION GAP 11 (5-15); ASPARTATE AMINOTRANSFERASE 18 U/L (10-37); BILIRUBIN,DIRECT 0.3 mg/dL (0.0-0.3); CALCIUM 9.3 mg/dL (8.4-11.0); CARBON DIOXIDE 27 mmol/L (23-29); CHLORIDE 103 mmol/L (98-107); CREATININE 0.77 mg/dL (0.55-1.30); GLUCOSE 166 mg/dL (74-106); LIPASE 45 U/L (16-77); POTASSIUM 3.6 mmol/L (3.5-5.1); SODIUM SERUM 141 mmol/L (136-145); TOTAL BILIRUBIN 1.5 mg/dL (0.0-1.0); TOTAL PROTEIN, SERUM 7.2 g/dL (6.4-8.3); UREA NITROGEN, BLOOD 11 mg/dL (8-21)
== END 2023-03-21 19:07 | disposition home or self-care (01) ==
LOC: SED 14:40
DX: N39.0 Urinary tract infection, site not specified (principal); R30.9 Painful micturition, unspecified; E11.9 Type 2 diabetes mellitus without complications; I10 Essential (primary) hypertension; Z85.43 Personal history of malignant neoplasm of ovary; Z88.1 Allergy status to other antibiotic agents; Z88.5 Allergy status to narcotic agent; Z79.899 Other long term (current) drug therapy
CPT/HCPCS: 36415; 80048; 80076; 81000; 81001; 81015; 83690; 85025; 87086; 99283

== ENCOUNTER 2023-03-22 13:14 | Emergency (ER) | payer OTHER, MEDICAID ==
[~2023-03-22] VITALS: Ht 165.1 cm; Wt 76.2 kg
[~2023-03-22 13:14] MED LIST changes: +NITR-85 PO
[2023-03-22 13:20] VITALS: BP_SYST 145; PULSE 69; RESP 18; TEMP 97.4; O2SAT 97
[2023-03-22 15:03] LABS: BILIRUBIN,URINE NEGATIVE (NEGATIVE); BLOOD, URINE NEGATIVE (NEGATIVE); CLARITY/URINE CLEAR (CLEAR); COLOR,URINE YELLOW (YELLOW); GLUCOSE,URINE 1+ (NEGATIVE); KETONES,URINE NEGATIVE (NEGATIVE); LEUKOCYTE ESTERASE ,URINE NEGATIVE (NEGATIVE); NITRITE, URINE POSITIVE (NEGATIVE); PROTEIN URINE NEGATIVE (NEGATIVE); UROBILINOGEN,URINE 0.2 (0.2-1.0)
[2023-03-22 15:11] LABS: BACTERIA,URINE MODERATE /HPF (None Seen); MUCUS,URINE None Seen /LPF (None Seen); RBC,URINE NONE SEEN /HPF (0-3); WBC,URINE 0-3 /HPF (0-3)
[2023-03-22 17:53] VITALS: BP_SYST 145; PULSE 69; RESP 18; TEMP 97.4; O2SAT 97
== END 2023-03-22 17:52 | disposition home or self-care (01) ==
LOC: SED 13:14
DX: N76.0 Acute vaginitis (principal); N39.0 Urinary tract infection, site not specified; E11.9 Type 2 diabetes mellitus without complications; I10 Essential (primary) hypertension; Z88.1 Allergy status to other antibiotic agents; Z88.5 Allergy status to narcotic agent; Z85.43 Personal history of malignant neoplasm of ovary; Z79.899 Other long term (current) drug therapy
CPT/HCPCS: 36415; 81000; 81001; 81015; 87086; 87210-TC; 87491; 99284

== ENCOUNTER 2023-12-01 19:31 | Emergency (ER) | payer MEDICAID, OTHER ==
[~2023-12-01] VITALS: Ht 165.1 cm; Wt 79.4 kg
[2023-12-01 20:02] VITALS: BP_SYST 155; PULSE 86; RESP 16; TEMP 96.4; O2SAT 97
[2023-12-01] MEDS ORDERED: CEPH-548 PO (21:57)
[2023-12-01] MEDS ORDERED: IBUP-2018 PO (21:57)
[2023-12-01] MEDS ORDERED: SULF1TAB48 PO (21:57)
[2023-12-01] MEDS: SULFAMETHOXAZOLE/TRIMETHOPR DS 1 TABLET PO ONE (22:04)
[2023-12-01] MEDS: cephALEXin 500 MG CAPSULE PO ONE (22:04)
== END 2023-12-01 22:05 | disposition home or self-care (01) ==
LOC: SED 19:31
DX: L02.224 Furuncle of groin (principal); E11.9 Type 2 diabetes mellitus without complications; I10 Essential (primary) hypertension; Z85.43 Personal history of malignant neoplasm of ovary; Z88.1 Allergy status to other antibiotic agents; Z88.5 Allergy status to narcotic agent; Z79.4 Long term (current) use of insulin
CPT/HCPCS: 99283

== ENCOUNTER 2023-12-05 14:29 | Emergency (ER) | payer OTHER ==
[~2023-12-05] VITALS: Ht 165.1 cm; Wt 79.8 kg
[~2023-12-05 14:29] MED LIST changes: +CEPH-548 PO; +IBUP-2018 PO; +SULF1TAB48 PO
[2023-12-05 14:39] VITALS: BP_SYST 159; PULSE 73; RESP 18; TEMP 97; O2SAT 95
[2023-12-05 17:34] LABS: BASOPHILS % (AUTO) 0.7 % (0.0-2.0); EOSINOPHILS # (AUTO) 0.1 K/uL (0.0-0.4); EOSINOPHILS % (AUTO) 2.3 % (0.0-4.0); HEMATOCRIT 40.2 % (36-48); LYMPHOCYTES # (AUTO) 1.3 K/uL (1.0-5.5); LYMPHOCYTES % (AUTO) 20.6 % (20.5-51.5); MEAN CORPUSCULAR HEMOGLOBIN 33 pg (27-31); MEAN CORPUSCULAR HGB CONC 35 % (32-36); MEAN CORPUSCULAR VOLUME 95 fL (79.0-98.0); MONOCYTES # (AUTO) 0.2 K/uL (0.0-1.0); MONOCYTES % (AUTO) 3.9 % (1.7-9.3); NEUTROPHILS # (AUTO) 4.6 K/uL (1.8-7.7); NEUTROPHILS % (AUTO) 72.5 % (40.0-70.0); PLATELET COUNT (AUTO) 157 K/uL (130-430); RED BLOOD CELL COUNT(AUTO) 4.23 MIL/uL (4.2-6.2); RED CELL DISTRIBUTION WIDTH 13.5 % (9.0-15.0); WHITE BLOOD COUNT (AUTO) 6.4 K/uL (4.8-10.8)
[2023-12-05] MEDS ORDERED: LORA10TA7 PO (17:39)
[2023-12-05] MEDS ORDERED: HYDC2.5% TP (17:39)
[2023-12-05 17:44] LABS: ANION GAP 10 (5-15); CALCIUM 9.1 mg/dL (8.4-11.0); CARBON DIOXIDE 24 mmol/L (23-29); CHLORIDE 101 mmol/L (98-107); CREATININE 0.94 mg/dL (0.55-1.30); GLUCOSE 235 mg/dL (74-106); POTASSIUM 4.1 mmol/L (3.5-5.1); SODIUM SERUM 135 mmol/L (136-145); UREA NITROGEN, BLOOD 13 mg/dL (8-21)
[2023-12-05 18:24] VITALS: BP_SYST 136; PULSE 68; RESP 19; TEMP 98.6; O2SAT 97
== END 2023-12-05 18:30 | disposition home or self-care (01) ==
LOC: SED 14:29
DX: L27.0 Generalized skin eruption due to drugs and medicaments taken internally (principal); E11.9 Type 2 diabetes mellitus without complications; I10 Essential (primary) hypertension; Z85.43 Personal history of malignant neoplasm of ovary; Z88.5 Allergy status to narcotic agent; Z88.1 Allergy status to other antibiotic agents; Z79.899 Other long term (current) drug therapy; Z79.2 Long term (current) use of antibiotics
CPT/HCPCS: 36415; 80048; 85025; 99283

== ENCOUNTER 2023-12-31 16:04 | Emergency (ER) | payer OTHER ==
[~2023-12-31] VITALS: Ht 165.1 cm; Wt 75.7 kg
[~2023-12-31 16:04] MED LIST changes: +HYDC2.5% TP; +LORA10TA7 PO
[2023-12-31 16:05] VITALS: BP_SYST 129; PULSE 79; RESP 18; TEMP 96.8; O2SAT 96
[2023-12-31 18:13] LABS: BASOPHILS # (AUTO) 0.1 K/uL (0.0-0.2); BASOPHILS % (AUTO) 0.8 % (0.0-2.0); EOSINOPHILS # (AUTO) 0.2 K/uL (0.0-0.4); EOSINOPHILS % (AUTO) 2.3 % (0.0-4.0); HEMATOCRIT 39.8 % (36-48); HEMOGLOBIN 14.2 g/dL (12.0-16.0); LYMPHOCYTES # (AUTO) 2.2 K/uL (1.0-5.5); LYMPHOCYTES % (AUTO) 25.1 % (20.5-51.5); MEAN CORPUSCULAR HEMOGLOBIN 34 pg (27-31); MEAN CORPUSCULAR HGB CONC 36 % (32-36); MEAN CORPUSCULAR VOLUME 94 fL (79.0-98.0); MONOCYTES # (AUTO) 0.4 K/uL (0.0-1.0); MONOCYTES % (AUTO) 4.1 % (1.7-9.3); NEUTROPHILS # (AUTO) 5.9 K/uL (1.8-7.7); NEUTROPHILS % (AUTO) 67.7 % (40.0-70.0); PLATELET COUNT (AUTO) 172 K/uL (130-430); RED BLOOD CELL COUNT(AUTO) 4.23 MIL/uL (4.2-6.2); WHITE BLOOD COUNT (AUTO) 8.7 K/uL (4.8-10.8)
[2023-12-31 18:29] LABS: PROTHROMBIN TIME 10.3 SECS (9.5-12.5)
[2023-12-31 18:34] LABS: ALANINE AMINOTRANSFERASE 15 U/L (12-78); ALBUMIN 3.8 g/dL (3.4-4.8); ANION GAP 9 (5-15); ASPARTATE AMINOTRANSFERASE 9 U/L (10-37); CALCIUM 9.5 mg/dL (8.4-11.0); CARBON DIOXIDE 27 mmol/L (23-29); CHLORIDE 100 mmol/L (98-107); CREATININE 1.11 mg/dL (0.55-1.30); GLUCOSE 253 mg/dL (74-106); POTASSIUM 3.9 mmol/L (3.5-5.1); SODIUM SERUM 136 mmol/L (136-145); TOTAL BILIRUBIN 1.9 mg/dL (0.0-1.0); TOTAL PROTEIN, SERUM 7.1 g/dL (6.4-8.3); UREA NITROGEN, BLOOD 18 mg/dL (8-21)
[2023-12-31 18:40] LABS: AMYLASE 31 U/L (0-100); BILIRUBIN,DIRECT 0.3 mg/dL (0.0-0.3); LIPASE 65 U/L (16-77)
[2023-12-31 18:53] LABS: BILIRUBIN,URINE NEGATIVE (NEGATIVE); BLOOD, URINE NEGATIVE (NEGATIVE); CLARITY/URINE CLEAR (CLEAR); COLOR,URINE YELLOW (YELLOW); GLUCOSE,URINE 3+ (NEGATIVE); KETONES,URINE NEGATIVE (NEGATIVE); LEUKOCYTE ESTERASE ,URINE NEGATIVE (NEGATIVE); NITRITE, URINE NEGATIVE (NEGATIVE); PROTEIN URINE NEGATIVE (NEGATIVE); UROBILINOGEN,URINE 0.2 (0.2-1.0)
[2023-12-31 19:12] LABS: BACTERIA,URINE FEW /HPF (None Seen); FINE GRANULAR CASTS,URINE 0-10 /LPF (None Seen); MUCUS,URINE 1+ /LPF (None Seen); RBC,URINE NONE SEEN /HPF (0-3); WBC,URINE 0-3 /HPF (0-3)
[2023-12-31] MEDS: HYDROmorphone 1 MG/ML INJ. CARTRIDGE IVP ONE (19:18)
[2023-12-31] MEDS: CEFEPIME 1 GM in D5W 50 ML IV ONE (21:12)
[2023-12-31] MEDS ORDERED: CEFEPIME 1 GM/VIAL (MAXIPIME) ONE (21:14)
[2023-12-31] MEDS ORDERED: FOSF3PAC4 PO (22:05)
[2023-12-31] MEDS ORDERED: TRAM50TA2 PO (22:06)
[2023-12-31 22:21] VITALS: BP_SYST 143; PULSE 74; RESP 17; TEMP 96.5; O2SAT 96
== END 2023-12-31 22:12 | disposition home or self-care (01) ==
LOC: SED 16:04
DX: N39.0 Urinary tract infection, site not specified (principal); R10.31 Right lower quadrant pain; E11.9 Type 2 diabetes mellitus without complications; I10 Essential (primary) hypertension; E78.00 Pure hypercholesterolemia, unspecified; Z88.1 Allergy status to other antibiotic agents; Z88.5 Allergy status to narcotic agent; Z79.4 Long term (current) use of insulin; Z90.79 Acquired absence of other genital organ(s); Z85.43 Personal history of malignant neoplasm of ovary; Z85.41 Personal history of malignant neoplasm of cervix uteri; Z79.899 Other long term (current) drug therapy
CPT/HCPCS: 99285; 74176; 96365; 96375; 80076; 80048; 81001; 82150; 83690; 85025; 85610; 85730; 87040; 36415; 83605; 82397; 81000; 81015; J1171; J0692

== ENCOUNTER 2024-01-08 15:08 | Emergency (ER) | payer OTHER ==
[~2024-01-08] VITALS: Ht 165.1 cm; Wt 77.6 kg
[~2024-01-08 15:08] MED LIST changes: +FOSF3PAC4 PO; +TRAM50TA2 PO
[2024-01-08 15:16] VITALS: BP_SYST 136; PULSE 68; RESP 18; TEMP 98.3; O2SAT 98
[2024-01-08 16:01] LABS: BILIRUBIN,URINE NEGATIVE (NEGATIVE); BLOOD, URINE NEGATIVE (NEGATIVE); COLOR,URINE YELLOW (YELLOW); GLUCOSE,URINE 3+ (NEGATIVE); KETONES,URINE NEGATIVE (NEGATIVE); LEUKOCYTE ESTERASE ,URINE NEGATIVE (NEGATIVE); NITRITE, URINE NEGATIVE (NEGATIVE); PROTEIN URINE NEGATIVE (NEGATIVE); UROBILINOGEN,URINE 0.2 (0.2-1.0)
[2024-01-08 16:35] LABS: BASOPHILS # (AUTO) 0.1 K/uL (0.0-0.2); EOSINOPHILS # (AUTO) 0.1 K/uL (0.0-0.4); EOSINOPHILS % (AUTO) 2.4 % (0.0-4.0); HEMATOCRIT 36.9 % (36-48); HEMOGLOBIN 13.1 g/dL (12.0-16.0); LYMPHOCYTES # (AUTO) 1.4 K/uL (1.0-5.5); LYMPHOCYTES % (AUTO) 27.3 % (20.5-51.5); MEAN CORPUSCULAR HEMOGLOBIN 33 pg (27-31); MEAN CORPUSCULAR HGB CONC 36 % (32-36); MEAN CORPUSCULAR VOLUME 94 fL (79.0-98.0); MONOCYTES # (AUTO) 0.2 K/uL (0.0-1.0); MONOCYTES % (AUTO) 4.5 % (1.7-9.3); NEUTROPHILS # (AUTO) 3.4 K/uL (1.8-7.7); NEUTROPHILS % (AUTO) 64.8 % (40.0-70.0); PLATELET COUNT (AUTO) 159 K/uL (130-430); RED BLOOD CELL COUNT(AUTO) 3.92 MIL/uL (4.2-6.2); RED CELL DISTRIBUTION WIDTH 12.8 % (9.0-15.0); WHITE BLOOD COUNT (AUTO) 5.3 K/uL (4.8-10.8)
[2024-01-08 16:42] LABS: CLARITY/URINE SLIGHTLY HAZY (CLEAR)
[2024-01-08 16:51] LABS: PROTHROMBIN TIME 10.2 SECS (9.5-12.5)
[2024-01-08 16:54] LABS: BACTERIA,URINE FEW /HPF (None Seen); MUCUS,URINE None Seen /LPF (None Seen); OTHER CASTS, URINE WBC CASTS 1+ /LPF (None Seen); RBC,URINE 0-3 /HPF (0-3)
[2024-01-08 16:58] LABS: ALANINE AMINOTRANSFERASE 23 U/L (12-78); ALBUMIN 3.5 g/dL (3.4-4.8); ANION GAP 7 (5-15); ASPARTATE AMINOTRANSFERASE 16 U/L (10-37); CARBON DIOXIDE 25 mmol/L (23-29); CHLORIDE 105 mmol/L (98-107); GLUCOSE 271 mg/dL (74-106); POTASSIUM 4.2 mmol/L (3.5-5.1); SODIUM SERUM 137 mmol/L (136-145); TOTAL BILIRUBIN 1.6 mg/dL (0.0-1.0); TOTAL PROTEIN, SERUM 6.5 g/dL (6.4-8.3); UREA NITROGEN, BLOOD 19 mg/dL (8-21)
[2024-01-08 17:01] LABS: AMYLASE 29 U/L (0-100); BILIRUBIN,DIRECT 0.3 mg/dL (0.0-0.3); LACTATE DEHYDROGENASE 99 U/L (81-234); LIPASE 62 U/L (16-77)
[2024-01-08 17:16] LABS: ACETONE, SERUM NEGATIVE (NEGATIVE)
[2024-01-08] MEDS ORDERED: NITR-85 PO (18:43)
[2024-01-08 18:50] VITALS: BP_SYST 136; PULSE 68; RESP 18; TEMP 98.3; O2SAT 98
== END 2024-01-08 18:49 | disposition home or self-care (01) ==
LOC: SED 15:08
DX: N39.0 Urinary tract infection, site not specified (principal); N28.1 Cyst of kidney, acquired; R10.31 Right lower quadrant pain; R11.0 Nausea; I10 Essential (primary) hypertension; E11.9 Type 2 diabetes mellitus without complications; E78.00 Pure hypercholesterolemia, unspecified; Z85.43 Personal history of malignant neoplasm of ovary; Z90.49 Acquired absence of other specified parts of digestive tract; Z88.1 Allergy status to other antibiotic agents; Z88.5 Allergy status to narcotic agent; Z79.4 Long term (current) use of insulin; Z79.899 Other long term (current) drug therapy
CPT/HCPCS: 80048; 80076; 81000; 81001; 81015; 82009; 82150; 83605; 83615; 83690; 84484; 85025; 85610; 85730; 99284